=== PATIENT | female | born 1945 | race Caucasian/White ===

== ENCOUNTER 2017-03-07 09:29 | Inpatient (IN) ==
--- NOTE | 2017-03-07 10:00 | Emergency Department Note ---
Fall HPI - General Chief Complaint: Fall Stated Complaint: Fall. Right hip pain Time Seen by Provider: 03/07/17 09:56 Source: patient Mode of arrival: EMS - History of Present Illness HPI Narrative: Patient apparently fell this morning about 6 and was on the floor until discovered at 9. She has pain in the right hip and unable to bear weight. Also scraped her right elbow and has a slight skin slip but no bony injury. Denies hitting her head and denies any other pain. - Related Data Home Medications Medication Instructions Recorded Confirmed Budesonide [Pulmicort Flexhaler] 180 mcg IH QAM 09/03/15 12/03/15 Enalapril [Vasotec] 5 mg PO DAILY 09/03/15 12/03/15 Esomeprazole Magnesium [Nexium] 40 mg PO DAILY 09/03/15 12/03/15 Folic Acid 2 mg PO BID 09/03/15 12/03/15 Furosemide [Lasix] 20 - 40 mg PO DAILY 09/03/15 12/03/15 Hydrocodone/APAP 7.5/325Mg [[place] 1 tab PO Q6HP PRN 09/03/15 12/03/15 7.5/325Mg] Hydroxychloroquine Sulfate 400 mg PO HS 09/03/15 12/03/15 [Plaquenil] LORazepam [Ativan] 2 mg PO HS 09/03/15 12/03/15 Mesalamine [Asacol Hd] 800 mg PO TID 09/03/15 12/03/15 Methocarbamol [Robaxin-750] 750 mg PO Q6HP PRN 09/03/15 12/03/15 Nitroglycerin [Nitrostat] 0.4 mg SL Q5M PRN 09/03/15 12/03/15 Primidone [Mysoline] 100 mg PO BID 09/03/15 12/03/15 Promethazine [Phenergan] 25 mg PO TIDP PRN 09/03/15 12/03/15 morphine [Ms Contin] 30 mg PO Q8 09/03/15 12/03/15 predniSONE [Prednisone] 10 mg PO BID 09/03/15 12/03/15 diclofenac 1 % topical gel 2 g TOPICAL BID PRN g 10/16/15 12/03/15 docusate calcium 240 mg capsule 720 mg PO QDAY cap 10/16/15 12/03/15 epinephrine 0.3 mg/0.3 mL 0.3 mg IM ONCE each 10/16/15 12/03/15 injection, auto-injector Aspirin [Aspirin EC] 325 mg PO BID 12/03/15 12/04/15 Budesonide [Pulmicort] 90 mcg IH HS 12/03/15 12/03/15 Gabapentin 100 mg PO HS 12/03/15 12/03/15 Ipratropium/Albuterol Sulfate 1 puff INH QIDP 12/03/15 12/03/15 [Combivent] Ketamine 10% Crm 1 - 2 each TOPICAL QIDP PRN 12/03/15 12/03/15 Vitamin D3 5,000 unit PO DAILY 12/03/15 12/03/15 Allergies Allergy/AdvReac Type Severity Reaction Status Date / Time Acyclovir Analogues Allergy Unknown Unknown Verified 03/07/17 09:41 cefdinir [From OMNICEF] Allergy Unknown UNKNOWN Verified 03/07/17 09:41 cephalexin [From Keflex] Allergy Unknown Other Verified 03/07/17 09:41 clopidogrel [From Plavix] Allergy Unknown Unknown Verified 03/07/17 09:41 Formoterol [From Symbicort] Allergy Unknown Unknown Verified 03/07/17 09:41 omeprazole Allergy Unknown Unknown Verified 03/07/17 09:41 pantoprazole Allergy Unknown Unknown Verified 03/07/17 09:41 Sulfa (Sulfonamide Allergy Unknown Unknown Verified 03/07/17 09:41 Antibiotics) tiotropium Allergy Unknown Unknown Verified 03/07/17 09:41 [From Spiriva with HandiHaler] fluticasone [From Flonase] AdvReac Palpitation Verified 03/07/17 09:41 s meperidine [From Demerol] AdvReac Hallucinati Verified 03/07/17 09:41 ng bee sting Allergy Severe Anaphylaxis Uncoded 12/03/15 17:01 avalox Allergy Unknown Unknown Uncoded 12/03/15 16:57 lensaprozole Allergy Unknown Unknown Uncoded 12/03/15 17:01 Review of Systems All systems ED: reviewed and negative except as stated. Fall PMH - Past Medical History PMFSH Narrative: Medical History Rib fracture (Acute) Pneumonia (Acute) Hypokalemia (Acute) Multiple rib fractures involving four or more ribs (Acute) Tobacco use (Chronic) Eczema (Chronic) Bilateral lower extremity edema (Chronic) Chronic pain syndrome (Chronic) Barretts esophagus (Chronic) GERD (gastroesophageal reflux disease) (Chronic) Crohns disease (Chronic) Chronic fatigue (Chronic) Tremor, essential (Chronic) COPD (chronic obstructive pulmonary disease) (Chronic) Osteoporosis (Chronic) CAD (coronary artery disease) (Chronic) Hypertension, essential, benign (Chronic) Rheumatoid arthritis (Chronic) Onychomycosis of toenail (Chronic) Callus of foot (Chronic) Skin fissure (Chronic) Chronic skin ulcer (Chronic) Erythromelalgia (Chronic) PVD (peripheral vascular disease) (Chronic) Peripheral neuropathy (Chronic) Spinal stenosis (Chronic) Hammertoe (Chronic) Toe ulcer (Chronic) Acute myofascial pain (Chronic) Trigger point (Chronic) Increased urinary frequency (Chronic) Cellulitis of both lower extremities (Chronic) Past Surgical History History of ERCP (Chronic) History of ear surgery (Chronic) History of open reduction and internal fixation (ORIF) procedure (Chronic) History of surgery (Chronic) History of tonsillectomy and adenoidectomy (Chronic) Hx of angioplasty (Chronic) Hx of arthroscopy of left knee (Chronic) Hx of cataract extraction (Chronic) Hx of coronary angiogram (Chronic) Hx of fusion of cervical spine (Chronic) Hx of hand surgery (Chronic) Hx of heart surgery (Chronic) Hx of microdiscectomy (Chronic) Hx of surgical procedure (Chronic) Hx of tubal ligation (Chronic) Family History Mother Thyroid disorder Alzheimers disease Dementia Father Heart disease Hypertension Family/Other Cancer Medical history: Reports: arthritis, COPD, coronary artery disease, GERD, hypertension, osteoporosis, peripheral artery disease, other (eczema. Petersen' s esophagus. Crohn's disease. Chronic fatigue. Essential tremor. Rheumatoid arthritis. Chronic skin ulcer. Peripheral neuropathy. Spinal stenosis.) - Social History smoking status: Former smoker Physical Exam Right leg is normally aligned. Passive flexion of the leg does elicit pain in the hip area. Limitations: no limitations General appearance: alert Head: atraumatic, normocephalic Eye: Present: normal appearance ENT: normal exam Neck: Present: normal inspection Chest: Present: normal inspection Respiratory: Present: normal lung sounds bilaterally Cardiovascular: Present: regular rate, normal rhythm, normal heart sounds Abdominal: Present: soft. Absent: distention, tenderness Neurological: Present: alert Psychiatric: Present: normal affect, normal mood Skin: Present: warm, dry, intact Course Vital Signs Temperature 98.0 F 03/07/17 09:31 Pulse Rate 78 03/07/17 09:31 Respiratory Rate 20 03/07/17 09:31 Blood Pressure 191/84 03/07/17 09:31 Pulse Oximetry (%) 89 L 03/07/17 09:31 Temperature 98.0 F 03/07/17 09:31 Pulse Rate 80 03/07/17 11:18 Respiratory Rate 14 03/07/17 11:18 Blood Pressure 174/70 03/07/17 11:16 Pulse Oximetry (%) 89 L 03/07/17 11:18 Fall - MDM Narrative Medical decision making narrative: Patient has a subcapital right hip fracture nondisplaced. Patient will be admitted by the hospitalist service and Dr. Kemp will plan orthopedic pinning of his hip fracture this evening. - Lab Data Lab results reviewed: Yes I reviewed the patient's lab results. Result diagrams: 03/07/17 10:00 03/07/17 10:00 Lab Results 03/07/17 03/07/17 03/07/17 Range/Units 10:00 10:00 10:00 WBC 9.7 (4.5-11.0) K/mcL RBC 3.29 L (4.00-5.20) M/mcL Hgb 9.6 L (12.0-15.0) g/dL Hct 29.7 L (36.0-48.0) % MCV 90.4 (80.0-100.0) fL MCH 29.3 (26.0-34.0) pg MCHC 32.4 (31.0-36.0) g/dL RDW 15.6 H (11.5-14.5) % Plt Count 468 H (140-440) K/mcL MPV 7.4 (7.4-10.4) fL Gran % 66.6 (38.0-78.0) % Lymph % (Auto) 17.4 (15.5-49.0) % [place] % (Auto) 8.6 (1.0-12.0) % Eos % (Auto) 7.1 H (0.0-7.0) % Baso % (Auto) 0.3 (0.0-2.0) % Gran # 6.5 (1.8-8.0) K/mcL Lymph # (Auto) 1.7 (1.5-4.8) K/mcL [place] # (Auto) 0.8 (0.1-0.9) K/mcL Eos # (Auto) 0.7 (0.0-0.7) K/mcL Baso # (Auto) 0 (0.0-0.3) K/mcL PT 13.5 (11.9-14.5) sec INR 1.0 (0.9-1.1) Sodium 133 (133-145) mmol/L Potassium 4.7 (3.3-5.1) mmol/L Chloride 95 L (96-108) mmol/L Carbon Dioxide 23 (22-30) mmol/L Anion Gap 15.0 (8-16) BUN 15 (8-23) mg/dl Creatinine 1.3 H (0.6-1.1) mg/dl GFR Calculation 42 Glucose 106 H (70-105) mg/dL Calcium 9.4 (8.6-10.4) mg/dl Total Bilirubin < 0.2 (0.0-1.0) mg/dL AST 11 (0-37) U/l ALT 8 (0-40) U/l Alkaline Phosphatase 102 (39-117) U/L Total Protein 7.6 (5.9-8.4) gm/dL Albumin 4.0 (3.2-5.2) gm/dL Globulin 3.6 (2.2-3.7) gm/dL Albumin/Globulin Ratio 1.1 (1.0-2.3) - Radiology Data Radiology results reviewed: Yes I reviewed the patient's radiology results. Disposition Pt seen by [employer]/PA only: No Clinical Impression: Hip fracture Disposition: Xfer As Inpt ([facility]) Condition: Good Referrals: Rekha Roberto, AWILDA [Primary Care Provider] - Time of Disposition: 12:00
[2017-03-07] MEDS: HYDROmorphone 2 MG/ML SYRINGE IV PRN ×3 (10:23→13:21)
--- NOTE | 2017-03-07 10:36 | XRay Report ---
CLINICAL INFORMATION: Trauma COMPARISON: 12/06/2015 FINDINGS: The heart is mildly enlarged, but unchanged. Mediastinum and pulmonary vessels are normal. There is minor airspace disease in the right upper and left lower lung ortiz - likely scarring or atelectasis. No definite infiltrates. Malunified old left-sided rib fractures seen - as before. No acute fractures or evidence of pneumo/hemothorax. IMPRESSION: No posttraumatic change. Mild chronic bronchitis changes and minor scarring or atelectasis in the right upper and left lower lung ortiz Mild stable cardiomegaly Interpreted and Authenticated by: Jelani Oneal 03/07/17
[2017-03-07 10:38] LABS: Basophils # (Auto) 0 K/mcL (0.0-0.3); Basophils % (Auto) 0.3 % (0.0-2.0); Eosinophils # (Auto) 0.7 K/mcL (0.0-0.7); Eosinophils % (Auto) 7.1 % (0.0-7.0); Granulocytes % (Auto) 66.6 % (38.0-78.0); Lymphocytes # (Auto) 1.7 K/mcL (1.5-4.8); Lymphocytes % (Auto) 17.4 % (15.5-49.0); Mean Cell Volume 90.4 fL (80.0-100.0); Mean Corpuscular HGB Conc 32.4 g/dL (31.0-36.0); Mean Corpuscular Hemoglobin 29.3 pg (26.0-34.0); Monocytes # (Auto) 0.8 K/mcL (0.1-0.9); Monocytes % (Auto) 8.6 % (1.0-12.0); Platelet Count 468 K/mcL (140-440); RBC 3.29 M/mcL (4.00-5.20); Red Cell Distribution Width 15.6 % (11.5-14.5)
--- NOTE | 2017-03-07 10:41 | XRay Report ---
CLINICAL INFORMATION: Trauma COMPARISON: 04/30/2015 FINDINGS: ] A nondisplaced lateral subcapital fracture of the right hip is noted. Malunified old fracture of the left pubic symphysis is unchanged radiographically prior study. Both SI and hip joints are normal in width and alignment without arthritic change. Moderate L4-5 and L5-S1 degenerative disc disease again noted. Soft tissues are normal IMPRESSION: Nondisplaced subcapital fracture - right hip. Interpreted and Authenticated by: Jelani Oneal 03/07/17
[2017-03-07 11:11] LABS: ALT/SGPT 8 U/l (0-40); Albumin/Globulin Ratio 1.1 (1.0-2.3); Alkaline Phosphatase 102 U/L (39-117); Blood Urea Nitrogen 15 mg/dl (8-23)
[2017-03-07] MEDS ORDERED: morphine 30 MG TAB.SR.12H PO ONE ×2 (12:54→13:40)
[2017-03-07] MEDS ORDERED: LIDOCAINE PATCH TOPICAL ONE (13:22)
[2017-03-07] MEDS ORDERED: morphine 30 MG TAB.SR.12H PO SCH (14:00)
[2017-03-07] MEDS ORDERED: LABETALOL 5 MG/ML ML IV PRN ×2 (14:12→18:16)
--- NOTE | 2017-03-07 14:40 | Internal Med History&Physical ---
Medical - H&P: [facility] Patient information: Note initiated : 03/07/17 at 2:35 pm Service Date, if different from initiated Date: [] Patient: Awilda Weinstein a 71 y/o F admitted on for Fall, Rt Hip Pain. Chief Complaint: "I fell down" History of present illness: Ms. Weinstein is a 71 year old F with a history of rheumatoid arthritis, chronic pain on chronic opiates, coronary artery disease with a history of FL with stenting in 2001, peripheral vascular disease, osteoporosis who has been having recurrent falls over the last several months who was in her usual state of health until this morning when she got in the light off in her living room and fell down and sustained a right hip fracture. She states that her falls are all mechanical and she denies any presyncopal events. She lives alone and normally walks with a walker or cane. Her activity is limited by joint pain from her arthritis and she is not very active. She denies any chest pain or shortness of breath or other anginal symptoms. Of note, she had an FL in 2001 which she thinks presented his neck pain. She denies any symptoms with activity. She was noted to be anemic in the ER with a hemoglobin of 9.6. She states she was told she was anemic several months ago. She states it has not been worked up that she no longer has a regular primary care provider. She denies any black or bloody stools or hematuria. No evidence of blood loss. She denies any dizziness, chest pain or shortness of breath. She has a history of rheumatoid arthritis. She states she is no longer on prednisone, but thinks she takes Plaquenil. She is on chronic opiate: MS Contin 30 mg 3 times daily. She has chronic neuropathy for which she takes gabapentin. Review of systems: Positive for constipation with her last bowel movement being 2 days ago. Otherwise a comprehensive review of systems is negative or noncontributory to the chief complaint. Medical - H&P: [facility] Medical history: 1. Coronary artery disease with a history of FL requiring stenting in 2001 2. COPD, not on chronic oxygen 3. Rheumatoid arthritis 4. Peripheral vascular disease 5. Osteoporosis 6. Petersen's esophagus/GERD 7. Hypertension 8. Peripheral neuropathy 9. History of rib fracture in 2016 with hemothorax 10. Crohn's disease 11. History of bilateral lower extremity edema with recurrent cellulitis Surgical history: History of ERCP (Chronic) History of ear surgery (Chronic) History of open reduction and internal fixation (ORIF) procedure (Chronic) History of surgery (Chronic) History of tonsillectomy and adenoidectomy (Chronic) Hx of angioplasty (Chronic) Hx of arthroscopy of left knee (Chronic) Hx of cataract extraction (Chronic) Hx of coronary angiogram (Chronic) Hx of fusion of cervical spine (Chronic) Hx of hand surgery (Chronic) Hx of heart surgery (Chronic) Hx of microdiscectomy (Chronic) Hx of surgical procedure (Chronic) Hx of tubal ligation (Chronic) Pertinent family history: Mother Thyroid disorder Alzheimers disease Dementia Father Heart disease Hypertension Family/Other Cancer Social history: She lives alone in a trailer. She uses a cane or a walker to ambulate. She is a prior smoker; she quit 2.5 years ago. She denies alcohol or recreational drug use. She is a full code and designates her mother, Gisell Atkinson, as her surrogate MDM. Medical - H&P: Meds Home Medications Medication Instructions Recorded Confirmed Type Budesonide [Pulmicort Flexhaler] 180 mcg IH QAM 09/03/15 12/03/15 History Enalapril [Vasotec] 5 mg PO DAILY 09/03/15 12/03/15 History Esomeprazole Magnesium [Nexium] 40 mg PO DAILY 09/03/15 12/03/15 History Folic Acid 2 mg PO BID 09/03/15 12/03/15 History Furosemide [Lasix] 20 - 40 mg PO DAILY 09/03/15 12/03/15 History Hydrocodone/APAP 7.5/325Mg [[place] 1 tab PO Q6HP PRN 09/03/15 12/03/15 History 7.5/325Mg] Hydroxychloroquine Sulfate 400 mg PO HS 09/03/15 12/03/15 History [Plaquenil] LORazepam [Ativan] 2 mg PO HS 09/03/15 12/03/15 History Mesalamine [Asacol Hd] 800 mg PO TID 09/03/15 12/03/15 History Methocarbamol [Robaxin-750] 750 mg PO Q6HP PRN 09/03/15 12/03/15 History Nitroglycerin [Nitrostat] 0.4 mg SL Q5M PRN 09/03/15 12/03/15 History Primidone [Mysoline] 100 mg PO BID 09/03/15 12/03/15 History Promethazine [Phenergan] 25 mg PO TIDP PRN 09/03/15 12/03/15 History morphine [Ms Contin] 30 mg PO Q8 09/03/15 12/03/15 History predniSONE [Prednisone] 10 mg PO BID 09/03/15 12/03/15 History diclofenac 1 % topical gel 2 g TOPICAL BID PRN g 10/16/15 12/03/15 History docusate calcium 240 mg capsule 720 mg PO QDAY cap 10/16/15 12/03/15 History epinephrine 0.3 mg/0.3 mL 0.3 mg IM ONCE each 10/16/15 12/03/15 History injection, auto-injector Aspirin [Aspirin EC] 325 mg PO BID 12/03/15 12/04/15 History Budesonide [Pulmicort] 90 mcg IH HS 12/03/15 12/03/15 History Gabapentin 100 mg PO HS 12/03/15 12/03/15 History Ipratropium/Albuterol Sulfate 1 puff INH QIDP 12/03/15 12/03/15 History [Combivent] Ketamine 10% [place] 1 - 2 each TOPICAL QIDP PRN 12/03/15 12/03/15 History Vitamin D3 5,000 unit PO DAILY 12/03/15 12/03/15 History Allergies Allergy/AdvReac Type Severity Reaction Status Date / Time Acyclovir Analogues Allergy Unknown Unknown Verified 03/07/17 09:41 cefdinir [From OMNICEF] Allergy Unknown UNKNOWN Verified 03/07/17 09:41 cephalexin [From Keflex] Allergy Unknown Other Verified 03/07/17 09:41 clopidogrel [From Plavix] Allergy Unknown Unknown Verified 03/07/17 09:41 Formoterol [From Symbicort] Allergy Unknown Unknown Verified 03/07/17 09:41 omeprazole Allergy Unknown Unknown Verified 03/07/17 09:41 pantoprazole Allergy Unknown Unknown Verified 03/07/17 09:41 Sulfa (Sulfonamide Allergy Unknown Unknown Verified 03/07/17 09:41 Antibiotics) tiotropium Allergy Unknown Unknown Verified 03/07/17 09:41 [From Spiriva with HandiHaler] meperidine [From Demerol] AdvReac Intermediate Hallucinati Verified 03/07/17 14: 17 ng fluticasone [From Flonase] AdvReac Mild Palpitation Verified 03/07/17 14:17 s bee sting Allergy Severe Anaphylaxis Uncoded 12/03/15 17:01 avalox Allergy Unknown Unknown Uncoded 12/03/15 16:57 lensaprozole Allergy Unknown Unknown Uncoded 12/03/15 17:01 Medical - H&P: Exam - Constitutional Vitals: Temp Pulse Resp BP Pulse Ox 98.0 F 84 16 187/74 95 03/07/17 09:31 03/07/17 13:46 03/07/17 13:46 03/07/17 13:46 03/07/17 13:46 Exam: General: It is a frail, elderly woman in no acute distress. HEENT: Normocephalic atraumatic. PERRLA. EOMI. Mucous membranes are moist. Neck: Supple without adenopathy or JVD. Trachea appears midline CV: Regular rate and rhythm. No murmurs, rubs or gallops. Respiratory: Lungs are clear to auscultation bilaterally. Abdomen: Is soft, nondistended, nontender. Positive bowel tones : Sparks is in place draining clear, colorless urine Neuro: Alert and oriented 3. No focal gross motor deficits. Extremities: No clubbing or cyanosis. 2+ bilateral lower extremity edema. No deformity noted Psych: Flat affect, latent speech Skin: Warm, dry. She has a rash on her bilateral ankles and feet consisting of pink macules and patches. R elbow skin tear Medical - H&P: Reslt - Labs CBC & Chem 7: 03/07/17 10:00 03/07/17 10:00 Labs: Short CBC 03/07/17 Range/Units 10:00 WBC 9.7 (4.5-11.0) K/mcL Hgb 9.6 L (12.0-15.0) g/dL Hct 29.7 L (36.0-48.0) % Plt Count 468 H (140-440) K/mcL BMP 03/07/17 10:00 Sodium 133 Potassium 4.7 Chloride 95 L Carbon Dioxide 23 BUN 15 Creatinine 1.3 H Glucose 106 H Calcium 9.4 Liver Function 03/07/17 Range/Units 10:00 Total Bilirubin < 0.2 (0.0-1.0) mg/dL AST 11 (0-37) U/l ALT 8 (0-40) U/l Alkaline Phosphatase 102 (39-117) U/L Albumin 4.0 (3.2-5.2) gm/dL - EKG Data -: EKG Reviewed by Myself - EKG Data Prior EKG available for review: no EKG comments: Normal sinus rhythm. She has isolated ST elevation in V2. 03/07/17 14:58 - Impressions hip x-ray IMPRESSION: Nondisplaced subcapital fracture - right hip. Chest x-ray shows mild chronic bronchitis changes and minor scarring or atelectasis in the right upper and left lower lung ortiz. Mild stable cardiomegaly. Medical - H&P: A/P - Narrative A/P Narrative: #Right hip nondisplaced subcapital fracture/preop risk stratification -she is a moderate to high risk patient for surgery with her cardiac risk stratification limited by her own activity limitations. Nonetheless, no further risk stratification/intervention needs done prior to surgery -plan to go to OR with Dr. Kemp the evening for pinning of the fracture. Discussed with Dr. Chapman, anesthesiology, today. -PT/OT ordered post op #Anemia, normocytic, normochromic -Last Hgb in 2015 was 11.7-->9.3 today. Denies s/s blood loss -Check iron studies, B12, folate, TSH, haptoglobin, peripheral smear and reticulocyte count. Trend H/H -Transfuse if Hgb <7.0 or if symptomatic. She would accept blood transfusion -eosinophilia and myelocytes seen on manual diff-?heme malignancy #COPD -neither steroid nor O2 dependent -PRN nebs; monitor #Thrombocytosis -suspect reactive. Monitor #History of CAD/PVD -cont ASA post op #Chronic pain on chronic opiates with history of rheumatoid arthritis -Home regimen: MS contin 30 TID. Will continue here with lidocaine patch ( instead of home ketorolac patch) plus MSIR 15 q4HP and MS IV q2HP -Bowel meds ordered #Petersen's esophagus--cont PPI #DVT prophylaxis--enoxaparin post op #CODE STATUS--FULL. Her mother, Gisell, is her surrogate MDM.
[2017-03-07] MEDS ORDERED: MAGNESIUM HYDROXIDE 30 ML ORAL.SUSP PO PRN (15:38)
[2017-03-07] MEDS ORDERED: ONDANSETRON 4 MG/2 ML VIAL IV PRN ×3 (15:38→18:29)
[2017-03-07] MEDS ORDERED: BISACODYL 10 MG SUPP.RECT PR PRN ×2 (15:38→18:29)
[2017-03-07] MEDS ORDERED: 0.9 % SODIUM CHLORIDE 1,000 ML IV SCH (15:38)
[2017-03-07] MEDS ORDERED: ALBUTEROL SULFATE 2.5 MG/3 ML NEBULIZER NEB PRN (15:38)
[2017-03-07] MEDS ORDERED: ACETAMINOPHEN 325 MG TABLET PO PRN (15:38)
[2017-03-07] MEDS: 0.9 % SODIUM CHLORIDE 10 ML SYRINGE IV SCH ×2 (16:25→22:14)
[2017-03-07 16:35] LABS: Appearance,Urine CLEAR; Bilirubin,Urine NEG (NEG); Color,Urine STRAW; Glucose,Urine (UA) NEGATIVE (NEG); Leukocyte Esterase,Urine NEG /uL (NEG); Nitrate,Urine NEG (NEG); Protein,Urine NEG (NEG); Specific Gravity,Urine 1.008 (1.000-1.035); Urine Blood NEG mg/dL (<0.03); Urobilinogen,Urine NEG (NEG)
[2017-03-07] MEDS ORDERED: CLINDAMYCIN 600 MG in DEXTROSE 5% IN WATER 50 ML IV SCH (17:30)
--- NOTE | 2017-03-07 17:34 | Orthopedic History & Physical ---
History of Present Illness Patient information: Note initiated : 03/07/17 at 5:28 pm Service Date, if different from initiated Date: [] Patient: Awilda Weinstein 71 y/o F admitted on 03/07/17 for Fall, Rt Hip Pain. Chief Complaint: [right hip pain] Patient with a PMH significant for rheumatoid arthritis, chronic pain, CAD with MT in 2001, peripheral vascular disease suffered a ground level fall earlier today and landed on her right hip. She has pain immediately in her right hip but denies numbness or tingling in the lower extremities. She currently lives alone and ambulates with a walker. She denies dizziness, chest pain, SOB or head ache. She also denies previous history of orthopedic fracture but does admit to falling on a regular basis with no syncopal symptoms prior. She is on chronic opiate medications as well as gabapentin for neuropathy. She is a prior smoker but quit several years ago and denies alcohol or recreational drug use. HPI: Ms. Weinstein is a 71 year old F Review of Systems Constitutional: no chills, no fever(s) Medications and Allergies Home Medications Medication Instructions Recorded Confirmed Type Budesonide [Pulmicort Flexhaler] 180 mcg IH QAM 09/03/15 12/03/15 History Enalapril [Vasotec] 10 mg PO DAILY 09/03/15 03/07/17 History Esomeprazole Magnesium [Nexium] 40 mg PO DAILY 09/03/15 12/03/15 History Folic Acid 2 mg PO BID 09/03/15 12/03/15 History Furosemide [Lasix] 20 - 40 mg PO DAILY 09/03/15 12/03/15 History Hydrocodone/APAP 7.5/325Mg [[place] 1 tab PO Q6HP PRN 09/03/15 12/03/15 History 7.5/325Mg] Hydroxychloroquine Sulfate 400 mg PO HS 09/03/15 12/03/15 History [Plaquenil] LORazepam [Ativan] 2 mg PO HS 09/03/15 12/03/15 History Mesalamine [Asacol Hd] 800 mg PO TID 09/03/15 03/07/17 History Methocarbamol [Robaxin-750] 750 mg PO QIDP PRN 09/03/15 03/07/17 History Nitroglycerin [Nitrostat] 0.4 mg SL Q5M PRN 09/03/15 12/03/15 History Promethazine [Phenergan] 25 mg PO TIDP PRN 09/03/15 03/07/17 History morphine [Ms Contin] 30 mg PO TID 09/03/15 03/07/17 History predniSONE [Prednisone] 10 mg PO BID 09/03/15 12/03/15 History diclofenac 1 % topical gel 2 g TOPICAL BID PRN g 10/16/15 12/03/15 History docusate calcium 240 mg capsule 720 mg PO QDAY cap 10/16/15 12/03/15 History epinephrine 0.3 mg/0.3 mL 0.3 mg IM ONCE each 10/16/15 12/03/15 History injection, auto-injector Budesonide [Pulmicort] 90 mcg IH HS 12/03/15 12/03/15 History Gabapentin 100 mg PO HS 12/03/15 12/03/15 History Ipratropium/Albuterol Sulfate 1 puff INH QIDP 12/03/15 12/03/15 History [Combivent] Ketamine 10% Crm 1 - 2 each TOPICAL QIDP PRN 12/03/15 12/03/15 History Vitamin D3 5,000 unit PO DAILY 12/03/15 12/03/15 History Aspirin 81 mg PO DAILY 03/07/17 03/07/17 History Diclofenac Epolamine [Flector] 1 patch TD Q12 03/07/17 03/07/17 History Fluticasone Propionate [Flonase] 2 spray NS HS 03/07/17 03/07/17 History Primidone [Mysoline] 100 mg PO DAILY 03/07/17 03/07/17 History Primidone [Mysoline] 150 mg PO HS 03/07/17 03/07/17 History Allergies Allergy/AdvReac Type Severity Reaction Status Date / Time Acyclovir Analogues Allergy Unknown Unknown Verified 03/07/17 09:41 cefdinir [From OMNICEF] Allergy Unknown UNKNOWN Verified 03/07/17 09:41 cephalexin [From Keflex] Allergy Unknown Other Verified 03/07/17 09:41 clopidogrel [From Plavix] Allergy Unknown Unknown Verified 03/07/17 09:41 Formoterol [From Symbicort] Allergy Unknown Unknown Verified 03/07/17 09:41 omeprazole Allergy Unknown Unknown Verified 03/07/17 09:41 pantoprazole Allergy Unknown Unknown Verified 03/07/17 09:41 Sulfa (Sulfonamide Allergy Unknown Unknown Verified 03/07/17 09:41 Antibiotics) tiotropium Allergy Unknown Unknown Verified 03/07/17 09:41 [From Spiriva with HandiHaler] meperidine [From Demerol] AdvReac Intermediate Hallucinati Verified 03/07/17 14: 17 ng fluticasone [From Flonase] AdvReac Mild Palpitation Verified 03/07/17 14:17 s bee sting Allergy Severe Anaphylaxis Uncoded 12/03/15 17:01 avalox Allergy Unknown Unknown Uncoded 12/03/15 16:57 lensaprozole Allergy Unknown Unknown Uncoded 12/03/15 17:01 Physical Examination - Hip right Gait: other (non ambulatory) Tenderness with palpation: none, anterior, posterior, medial, lateral, greater trochanter, other Pain with motion: no pain, internal rotation and hip flexion, internal rotation and hip extension, external rotation and hip flexion, external rotation and hip extension, other Results - Labs Result Diagrams: 03/07/17 10:00 03/07/17 10:00 Labs: Abnormal lab results 03/07/17 03/07/17 Range/Units 10:00 10:00 RBC 3.29 L (4.00-5.20) M/mcL Hgb 9.6 L (12.0-15.0) g/dL Hct 29.7 L (36.0-48.0) % RDW 15.6 H (11.5-14.5) % Plt Count 468 H (140-440) K/mcL Eos % (Auto) 7.1 H (0.0-7.0) % Chloride 95 L (96-108) mmol/L Creatinine 1.3 H (0.6-1.1) mg/dl Glucose 106 H (70-105) mg/dL H & H 03/07/17 Range/Units 10:00 Hgb 9.6 L (12.0-15.0) g/dL Hct 29.7 L (36.0-48.0) % Coagulation 03/07/17 Range/Units 10:00 INR 1.0 (0.9-1.1) All other labs normal. - Diagnostic results Hip x-ray: report reviewed, image reviewed Assessment and Plan (1) Closed right hip fracture Assessment: non displaced right femoral neck fracture Plan: -Had a lengthy discussion with the patient in regards to her right hip fracture. Due to the alignment, this may be treated with pinning. We discussed the procedure at length and the patient would like to proceed with a right hip pinning with Dr. Kemp. We discussed the procedure at length as well as the possible risks and benefits associated with anesthesia including risks of blood clots, infection and nonunion. No guarantees were made. Patient understands the risks and would like to proceed with the procedure. -Admit to hospital overnight for pain control -Pain control -DVT prophylaxis -OT/PT Status: Acute Exam Vital signs: Temp Pulse Resp BP Pulse Ox 99.3 F H 79 16 188/86 92 03/07/17 15:56 03/07/17 15:03 03/07/17 15:56 03/07/17 15:56 03/07/17 15:56 Constitutional: well developed, well nourished, no acute distress Head: normocephalic, atraumatic Neck: supple Respiratory: no intercostal retractions or use of accessory muscles, clear to auscultation bilaterally Cardiovascular: regular rate & rhythm with no murmurs, rubs or gallops, no thrill or palpable murmurs, other (dorsalis pedis pulse bilaterally 2+, posterior tibialis pulse 2+) Skin: rash (scattered red lesions on bilateral lower extremities), erythema ( all toes) Neurologic: sensation intact to touch (bilateral lower extremities), other ( alert, oriented x 3) Psychiatric: oriented to person, place and time
[2017-03-07] MEDS ORDERED: MIDAZOLAM 5 MG/5 ML VIAL IV ONE (17:55)
[2017-03-07] MEDS ORDERED: fentaNYL 100 MCG/2 ML VIAL IV ONE ×2 (17:55→19:16)
[2017-03-07] MEDS ORDERED: ONDANSETRON 4 MG/2 ML VIAL IV ONE (17:55)
[2017-03-07] MEDS ORDERED: DEXAMETHASONE 10 MG/ML VIAL IV ONE (17:55)
[2017-03-07] MEDS ORDERED: PROPOFOL 200 MG/20 ML VIAL IV ONE (17:55)
[2017-03-07] MEDS ORDERED: ROPIVACAINE HCL/PF 20 ML VIAL IJ ONE (17:55)
[2017-03-07] MEDS ORDERED: PHENYLEPHRINE 10 MG/ML VIAL IV ONE (17:55)
[2017-03-07] MEDS ORDERED: LIDOCAINE HCL/PF 100 MG/5 ML SYRINGE IV ONE (17:55)
[2017-03-07] MEDS ORDERED: PROMETHAZINE 25 MG/ML VIAL IV PRN (18:16)
[2017-03-07] MEDS ORDERED: MEPERIDINE 25 MG/ML SYRINGE IV PRN (18:16)
[2017-03-07] MEDS ORDERED: ePHEDrine 50 MG/ML AMPUL IV PRN (18:16)
[2017-03-07] MEDS ORDERED: ATROPINE SULFATE 0.4 MG/ML VIAL IV PRN (18:16)
[2017-03-07] MEDS ORDERED: diphenhydrAMINE 50 MG/ML VIAL IV PRN (18:16)
[2017-03-07] MEDS ORDERED: IPRATROPIUM/ALBUTEROL 3 ML AMPUL.NEB NEB PRN (18:16)
[2017-03-07] MEDS ORDERED: NALOXONE HCL 0.4 MG/ML VIAL IV PRN ×2 (18:16→18:29)
[2017-03-07] MEDS ORDERED: FLUMAZENIL 0.1 MG/ML ML IV PRN (18:16)
[2017-03-07] MEDS ORDERED: METHOCARBAMOL 1,000 MG/10 ML VIAL IV PRN (18:16)
[2017-03-07] MEDS ORDERED: METHOCARBAMOL (PP) 750 MG TABLET (#4) PO PRN (18:21)
[2017-03-07] MEDS ORDERED: PROMETHAZINE 25 MG TABLET PO PRN (18:21)
[2017-03-07] MEDS ORDERED: BENZOCAINE/MENTHOL 1 LOZENGE PO PRN (18:29)
[2017-03-07] MEDS ORDERED: FLEETS ADULT ENEMA PR PRN (18:29)
[2017-03-07] MEDS ORDERED: POLYETHYLENE GLYCOL 3350 17 GM PACKET PO PRN (18:29)
[2017-03-07] MEDS ORDERED: ONDANSETRON ODT 4 MG TABLET SL PRN (18:29)
[2017-03-07] MEDS ORDERED: LACTATED RINGERS 1,000 ML IV SCH (18:30)
[2017-03-07 19:02] LABS: Retic Absolute 0.8 % (0.5-1.5)
[2017-03-07] MEDS: fentaNYL 100 MCG/2 ML VIAL IV PRN ×2 (19:10→19:14)
[2017-03-07 19:20] LABS: Ferritin 264.3 ng/ml (30-400); Vitamin B12 671.2 pg/ml (232-1245)
--- NOTE | 2017-03-07 19:20 | XRay Report ---
CLINICAL INFORMATION: Also O fracture right hip COMPARISON: Preoperative pelvic study from 03/07/2017 FINDINGS: Three screws transfixing subcapital fracture which has been reduced to anatomic alignment. No other change or abnormality IMPRESSION: ORIF subcapital fracture now anatomically aligned Interpreted and Authenticated by: Jelani Oneal 03/07/17
[2017-03-07] MEDS: IPRATROPIUM/ALBUTEROL 3 ML AMPUL.NEB NEB SCH (19:43)
[2017-03-07] MEDS: 0.9 % SODIUM CHLORIDE 1,000 ML IV SCH (19:51)
[2017-03-07] MEDS ORDERED: WARFARIN 5 MG TABLET PO SCH (20:00)
[2017-03-07] MEDS ORDERED: SENNOSIDES 1 TABLET PO SCH (21:00)
[2017-03-07] MEDS: SENNOSIDES 1 TABLET PO SCH (21:03)
[2017-03-07] MEDS: PRIMIDONE 50 MG TABLET PO SCH (21:03)
[2017-03-07] MEDS: FLUTICASONE PROPIONATE SPRAY.NAS NS SCH (21:04)
[2017-03-07] MEDS: DOCUSATE SODIUM 100 MG CAPSULE PO SCH (21:04)
[2017-03-07] MEDS ORDERED: CLINDAMYCIN 600 MG/4 ML VIAL ONE (21:06)
[2017-03-07] MEDS: CLINDAMYCIN 600 MG in DEXTROSE 5% IN WATER 50 ML IV SCH (22:09)
[2017-03-07] MEDS: METHOCARBAMOL 750 MG TABLET PO PRN (22:20)
[2017-03-08] MEDS: IPRATROPIUM/ALBUTEROL 3 ML AMPUL.NEB NEB SCH ×4 (01:07→19:51)
[2017-03-08] MEDS: HYDROcodone/APAP 10/325MG TABLET PO PRN ×6 (02:01→23:32)
[2017-03-08] MEDS: METHOCARBAMOL 750 MG TABLET PO PRN ×2 (05:07→22:50)
[2017-03-08] MEDS: 0.9 % SODIUM CHLORIDE 10 ML SYRINGE IV SCH ×4 (05:07→22:47)
--- NOTE | 2017-03-08 05:55 | Orthopedic Progress Note ---
Subjective Patient information: Note initiated : 03/08/17 at 5:52 am Service Date, if different from initiated Date: [] Patient: Awilda Weinstein 71 y/o F admitted on 03/07/17 for Fall, Rt Hip Pain. Chief Complaint: [POD #1 s/p right hip pinning Patient is doing well this morning s/p right hip pinning. She denies significant pain, numbness or tingling in bilateral lower extremities. She does state that she cannot feel the SCD as well as the right lower leg but she can feel it. She also reports that her sensation is improving. She has no questions or concerns at this time.] Objective Vital signs: Vital Signs Temp Pulse Pulse Resp BP BP BP 03/08/17 02:50 97.7 F 91 H 20 137/60 03/08/17 00:00 97.7 F 89 16 149/64 03/07/17 22:11 95 H 146/69 03/07/17 21:11 95 H 161/69 03/07/17 20:41 96 H 157/70 03/07/17 20:11 95 H 163/75 03/07/17 19:56 94 H 175/76 03/07/17 19:47 93 H 16 03/07/17 19:44 03/07/17 19:41 95 H 189/79 03/07/17 19:27 98.6 F 95 H 16 183/89 03/07/17 19:20 97.2 F 84 16 189/76 03/07/17 19:05 97.2 F 88 16 185/75 03/07/17 18:50 97.2 F 89 16 184/78 03/07/17 18:45 97.2 F 82 16 180/72 03/07/17 18:40 97.2 F 80 16 158/61 03/07/17 18:35 97.2 F 76 16 154/62 03/07/17 15:56 99.3 F H 16 188/86 03/07/17 15:15 03/07/17 15:03 79 17 173/69 03/07/17 14:46 79 17 173/69 03/07/17 14:31 81 13 185/79 03/07/17 14:16 79 16 198/81 03/07/17 14:01 78 17 187/83 03/07/17 13:46 84 16 187/74 03/07/17 13:35 16 03/07/17 13:31 88 19 188/82 03/07/17 13:16 21 213/81 03/07/17 13:01 17 198/68 03/07/17 12:46 77 15 185/67 03/07/17 12:31 87 19 198/76 03/07/17 12:16 81 15 187/78 03/07/17 12:09 15 158/123 03/07/17 11:46 82 16 179/76 03/07/17 11:31 85 14 171/68 03/07/17 11:18 80 14 03/07/17 11:16 79 14 174/70 03/07/17 11:01 80 13 183/73 03/07/17 10:46 16 193/70 03/07/17 10:31 73 17 184/75 03/07/17 10:16 168/96 03/07/17 10:01 19 160/79 03/07/17 09:46 20 156/73 03/07/17 09:44 17 191/84 03/07/17 09:31 98.0 F 78 20 191/84 Pulse Ox 03/08/17 02:50 96 03/08/17 00:00 97 03/07/17 22:11 97 03/07/17 21:11 96 03/07/17 20:41 96 03/07/17 20:11 96 03/07/17 19:56 97 03/07/17 19:47 03/07/17 19:44 94 03/07/17 19:41 96 03/07/17 19:27 95 03/07/17 19:20 99 03/07/17 19:05 99 03/07/17 18:50 100 03/07/17 18:45 100 03/07/17 18:40 100 03/07/17 18:35 99 03/07/17 15:56 92 03/07/17 15:15 92 03/07/17 15:03 100 03/07/17 14:46 100 03/07/17 14:31 100 03/07/17 14:16 100 03/07/17 14:01 88 L 03/07/17 13:46 95 03/07/17 13:35 03/07/17 13:31 93 03/07/17 13:16 03/07/17 13:01 03/07/17 12:46 98 03/07/17 12:31 98 03/07/17 12:16 100 03/07/17 12:09 03/07/17 11:46 100 03/07/17 11:31 88 L 03/07/17 11:18 89 L 03/07/17 11:16 87 L 03/07/17 11:01 87 L 03/07/17 10:46 03/07/17 10:31 94 03/07/17 10:16 03/07/17 10:01 03/07/17 09:46 03/07/17 09:44 03/07/17 09:31 89 L Intake and Output 03/07/17 03/07/17 03/08/17 13:59 21:59 05:59 Intake Total 1000 / 1000 375 / 375 Output Total 900 / 900 750 / 750 Balance 100 / 100 -375 / -375 Intake: Oral 375 / 375 IV - Manual Only 1000 / 1000 Output: Urine Catheter Amount 900 / 900 750 / 750 Other: Weight 100 lb 108 lb 8 oz Patient Weight 03/08/17 05:59 Weight 108 lb 8 oz Intake & Output: Intake & Output 03/07/17 03/07/17 03/08/17 13:59 21:59 05:59 Intake Total 1000 / 1000 375 / 375 Output Total 900 / 900 750 / 750 Balance 100 / 100 -375 / -375 Weight 100 lb 108 lb 8 oz Intake: Oral 375 / 375 IV - Manual Only 1000 / 1000 Output: Urine Catheter Amount 900 / 900 750 / 750 Incision: Yes clean and dry Incision clean and dry: Yes Dressing: Yes clean, Yes dry, Yes intact Weight bearing status: partial (50% with assistive device) Neurological exam IM: Yes alert, Yes oriented X3, Yes neurovascular intact ( bilateral lower extremities) Extremities exam IM: No calf tenderness, Yes normal capillary refill, No Pierce' s sign, Yes Foot pink and warm, Yes neurovascular intact - Periperhal Pulses Peripheral pulses: 2+: dorsalis pedis (L), dorsalis pedis (R), posterior tibialis (L), posterior tibialis (R) - Diagnostic Results Hip x-ray: image reviewed - Labs CBC & BMP: 03/07/17 10:00 03/07/17 10:00 Labs: Orthopedic Labs 03/08/17 03/07/17 04:45 10:00 PT Pending 13.5 INR Pending 1.0 03/08/17 03/07/17 04:45 10:00 Hgb Pending 9.6 L Hct Pending 29.7 L Assessment and Plan (1) Closed right hip fracture Assessment: POD #1 s/p right hip pinning Plan: -Pain control -Home meds per hospitalist -DVT prophylaxis with ASA 325mg BID for one month and SCD boots -PT/OT in hospital -May change dressing if fluid leaks through with 4x4 gauze and metaphor. Keep clean and dry -50% weight bearing with assistive device -d/c planning: to SNF per hospitalist in several days Status: Acute
--- NOTE | 2017-03-08 06:00 | Orthopedic Progress Note ---
Subjective Patient information: Note initiated : 03/08/17 at 5:59 am Service Date, if different from initiated Date: [] Patient: Awilda Weinstein 71 y/o F admitted on 03/07/17 for Fall, Rt Hip Pain. Chief Complaint: [] Amendment: DVT prophylaxis with Warfarin/Lovenox Objective Vital signs: Vital Signs Temp Pulse Pulse Resp BP BP BP 03/08/17 02:50 97.7 F 91 H 20 137/60 03/08/17 00:00 97.7 F 89 16 149/64 03/07/17 22:11 95 H 146/69 03/07/17 21:11 95 H 161/69 03/07/17 20:41 96 H 157/70 03/07/17 20:11 95 H 163/75 03/07/17 19:56 94 H 175/76 03/07/17 19:47 93 H 16 03/07/17 19:44 03/07/17 19:41 95 H 189/79 03/07/17 19:27 98.6 F 95 H 16 183/89 03/07/17 19:20 97.2 F 84 16 189/76 03/07/17 19:05 97.2 F 88 16 185/75 03/07/17 18:50 97.2 F 89 16 184/78 03/07/17 18:45 97.2 F 82 16 180/72 03/07/17 18:40 97.2 F 80 16 158/61 03/07/17 18:35 97.2 F 76 16 154/62 03/07/17 15:56 99.3 F H 16 188/86 03/07/17 15:15 03/07/17 15:03 79 17 173/69 03/07/17 14:46 79 17 173/69 03/07/17 14:31 81 13 185/79 03/07/17 14:16 79 16 198/81 03/07/17 14:01 78 17 187/83 03/07/17 13:46 84 16 187/74 03/07/17 13:35 16 03/07/17 13:31 88 19 188/82 03/07/17 13:16 21 213/81 03/07/17 13:01 17 198/68 03/07/17 12:46 77 15 185/67 03/07/17 12:31 87 19 198/76 03/07/17 12:16 81 15 187/78 03/07/17 12:09 15 158/123 03/07/17 11:46 82 16 179/76 03/07/17 11:31 85 14 171/68 03/07/17 11:18 80 14 03/07/17 11:16 79 14 174/70 03/07/17 11:01 80 13 183/73 03/07/17 10:46 16 193/70 03/07/17 10:31 73 17 184/75 03/07/17 10:16 168/96 03/07/17 10:01 19 160/79 03/07/17 09:46 20 156/73 03/07/17 09:44 17 191/84 03/07/17 09:31 98.0 F 78 20 191/84 Pulse Ox 03/08/17 02:50 96 03/08/17 00:00 97 03/07/17 22:11 97 03/07/17 21:11 96 03/07/17 20:41 96 03/07/17 20:11 96 03/07/17 19:56 97 03/07/17 19:47 03/07/17 19:44 94 03/07/17 19:41 96 03/07/17 19:27 95 03/07/17 19:20 99 03/07/17 19:05 99 03/07/17 18:50 100 03/07/17 18:45 100 03/07/17 18:40 100 03/07/17 18:35 99 03/07/17 15:56 92 03/07/17 15:15 92 03/07/17 15:03 100 03/07/17 14:46 100 03/07/17 14:31 100 03/07/17 14:16 100 03/07/17 14:01 88 L 03/07/17 13:46 95 03/07/17 13:35 03/07/17 13:31 93 03/07/17 13:16 03/07/17 13:01 03/07/17 12:46 98 03/07/17 12:31 98 03/07/17 12:16 100 03/07/17 12:09 03/07/17 11:46 100 03/07/17 11:31 88 L 03/07/17 11:18 89 L 03/07/17 11:16 87 L 03/07/17 11:01 87 L 03/07/17 10:46 03/07/17 10:31 94 03/07/17 10:16 03/07/17 10:01 03/07/17 09:46 03/07/17 09:44 03/07/17 09:31 89 L Intake and Output 03/07/17 03/07/17 03/08/17 13:59 21:59 05:59 Intake Total 1000 / 1000 375 / 375 Output Total 900 / 900 750 / 750 Balance 100 / 100 -375 / -375 Intake: Oral 375 / 375 IV - Manual Only 1000 / 1000 Output: Urine Catheter Amount 900 / 900 750 / 750 Other: Weight 100 lb 108 lb 8 oz Patient Weight 03/08/17 05:59 Weight 108 lb 8 oz Intake & Output: Intake & Output 03/07/17 03/07/17 03/08/17 13:59 21:59 05:59 Intake Total 1000 / 1000 375 / 375 Output Total 900 / 900 750 / 750 Balance 100 / 100 -375 / -375 Weight 100 lb 108 lb 8 oz Intake: Oral 375 / 375 IV - Manual Only 1000 / 1000 Output: Urine Catheter Amount 900 / 900 750 / 750 - Labs CBC & BMP: 03/07/17 10:00 03/07/17 10:00 Labs: Orthopedic Labs 03/08/17 03/07/17 04:45 10:00 PT Pending 13.5 INR Pending 1.0 03/08/17 03/07/17 04:45 10:00 Hgb Pending 9.6 L Hct Pending 29.7 L Assessment and Plan (1) Closed right hip fracture Assessment: POD #1 s/p right hip pinning Plan: -Pain control -Home meds per hospitalist -DVT prophylaxis with ASA 325mg BID for one month and SCD boots -PT/OT in hospital -May change dressing if fluid leaks through with 4x4 gauze and metaphor. Keep clean and dry -50% weight bearing with assistive device -d/c planning: to SNF per hospitalist in several days Status: Acute
[2017-03-08] MEDS: 0.9 % SODIUM CHLORIDE 1,000 ML IV SCH ×2 (06:01→14:36)
[2017-03-08] MEDS: Mesalamine [Asacol Hd] 800 MG PO SCH ×4 (06:47→21:12)
[2017-03-08 07:07] LABS: Mean Cell Volume 90.1 fL (80.0-100.0); Mean Corpuscular HGB Conc 32.6 g/dL (31.0-36.0); Mean Corpuscular Hemoglobin 29.3 pg (26.0-34.0); Platelet Count 342 K/mcL (140-440); RBC 2.42 M/mcL (4.00-5.20); Red Cell Distribution Width 15.3 % (11.5-14.5)
[2017-03-08 07:08] LABS: ALT/SGPT 6 U/l (0-40); Albumin 2.8 gm/dL (3.2-5.2); Alkaline Phosphatase 74 U/L (39-117); Blood Urea Nitrogen 14 mg/dl (8-23)
[2017-03-08] MEDS ORDERED: PANTOPRAZOLE 40 MG VIAL IV SCH (07:30)
[2017-03-08] MEDS: ASPIRIN 81 MG TAB.CHEW PO SCH (08:12)
[2017-03-08] MEDS: DOCUSATE SODIUM 100 MG CAPSULE PO SCH ×2 (08:12→21:11)
[2017-03-08] MEDS: PRIMIDONE 50 MG TABLET PO SCH ×2 (08:13→21:10)
[2017-03-08] MEDS: ENOXAPARIN 40 MG/0.4 ML SYRINGE SQ SCH (08:18)
--- NOTE | 2017-03-08 08:34 | Operative Note ---
DATE OF OPERATION: 03/07/2017 PREOPERATIVE DIAGNOSIS: Right hip transcervical impacted femoral neck fracture. POSTOPERATIVE DIAGNOSIS: Right hip transcervical impacted femoral neck fracture. PROCEDURE PERFORMED: Right hip percutaneous screw fixation. SURGEON: Pricilla Kemp MD VENDING MACHINE ASSEMBLER: Mita Quach PA-C ANESTHESIA: General. FINDINGS: Valgus impacted transcervical femoral neck fracture. INDICATIONS: The patient is a 71-year-old female who fell and sustained a valgus impacted femoral neck fracture, minimally displaced. We talked about the options, both hemiarthroplasty and percutaneous screw fixation, and at this point she elected to proceed with the latter. The risks and benefits were discussed with the patient in detail including, but not limited to, the risks of anesthesia, problems with the heart or lungs related to anesthesia, infection, compromise or injury to the nerves and blood vessels, deep venous thrombosis, pulmonary embolism, pneumonia, continued pain after surgery, worsening pain or symptoms after surgery, swelling, loss of motion, need for repeat surgery, hardware failure, re-tear or failure of repair site, malunion, nonunion, and hardware pain requiring future removal. OPERATION IN DETAIL: The patient was seen preoperatively where site and side were properly identified and marked, and all questions were answered. She was then transferred to the operating room and given 600 mg clindamycin and general anesthesia was administered without complication. She was placed onto the hip fracture table with all prominences well-padded. She was prepped and draped using the wall drape. Standard AP and lateral radiographs were taken, confirming the fracture was reduced well. We then made a 3 cm incision over the lateral hip and we placed three pins, one in the inferior neck in the center position just above the lesser trochanter and the two pins superior at the superior calcar, one anterior and posterior, created an inverted triangle. We measured at 80 mm. We then overdrilled and placed three 7.3 x 80 mm short-thread screws with good fixation of the bone. Radiographs confirmed that the hardware was in good position and the fracture was anatomically aligned. All of the screws were in good position with no head cutout. We then thoroughly irrigated and closed the IT band with #1 Vicryl. Subcutaneous layer was closed with 3-0 Vicryl and skin was closed with harika. She was dressed with Xeroform, 4x4s, ABD and [place] tape. She was then extubated and transferred to a stretcher, taken to the PACU in stable condition. SPECIMENS: None. COMPLICATIONS: None. DRAINS: None. DISPOSITION: To Post-Anesthetic Care Unit in stable condition. CHRISTOPHER:saima Job ID: [id number] Doc ID: [id number] Pricilla Kemp MD
[2017-03-08] MEDS: CLINDAMYCIN 600 MG in DEXTROSE 5% IN WATER 50 ML IV SCH (08:38)
[2017-03-08] MEDS ORDERED: LISINOPRIL 10 MG TABLET PO SCH (09:00)
[2017-03-08] MEDS ORDERED: ENALAPRIL 10 MG PO SCH (09:00)
[2017-03-08 09:05] LABS: Lymphocytes % 22 % (15-49); Monocytes % (Manual) 12 % (1-12); Platelet Estimate NORMAL (NORMAL); RBC Morphology NORMAL (NORMAL); Segmented Neutrophils % 65 % (38-78)
[2017-03-08] MEDS: MAGNESIUM HYDROXIDE 30 ML ORAL.SUSP PO PRN (10:02)
[2017-03-08] MEDS ORDERED: 0.9 % SODIUM CHLORIDE 250 ML IV SCH (10:30)
[2017-03-08] MEDS ORDERED: WARFARIN 4 MG TABLET PO SCH (14:00)
--- NOTE | 2017-03-08 15:24 | Internal Med Progress Note ---
Medical - PN: Subj Patient information: Note initiated : 03/08/17 at 3:18 pm Service Date, if different from initiated Date: [] Patient: Awilda Weinstein a 71 y/o F admitted on 03/07/17 for Fall, Rt Hip Pain/ Right Hip Fracture. Chief Complaint: [] Interval history: History of present illness: Ms. Weinstein is a 71 year old F with a history of rheumatoid arthritis, chronic pain on chronic opiates, coronary artery disease with a history of IL with stenting in 2001, peripheral vascular disease, osteoporosis who has been having recurrent falls over the last several months who was in her usual state of health until this morning when she got in the light off in her living room and fell down and sustained a right hip fracture. She states that her falls are all mechanical and she denies any presyncopal events. She lives alone and normally walks with a walker or cane. Her activity is limited by joint pain from her arthritis and she is not very active. She denies any chest pain or shortness of breath or other anginal symptoms. Of note, she had an IL in 2001 which she thinks presented his neck pain. She denies any symptoms with activity. She was noted to be anemic in the ER with a hemoglobin of 9.6. She states she was told she was anemic several months ago. She states it has not been worked up that she no longer has a regular primary care provider. She denies any black or bloody stools or hematuria. No evidence of blood loss. She denies any dizziness, chest pain or shortness of breath. She has a history of rheumatoid arthritis. She states she is no longer on prednisone, but thinks she takes Plaquenil. She is on chronic opiate: MS Contin 30 mg 3 times daily. She has chronic neuropathy for which she takes gabapentin. March 08: Had surgery yesterday. Hgb 7.1 today and pt feels tired; will transfuse. Her R hip pain is reasonably well controlled on hydrocodone and IV morphine. She is requesting her home Ativan at bedtime. ROS: no chest pain or SOB Gen: NAD, appears fatigued CV: RRR. 2/6 systolic ejection murmur Pulm: CTAB Abd: soft/nd/nt. Hypoactive BT Ext: no c/c/e. Well perfused. R hip bandage has a 1cm [place] of bloody drainage visible from the outside. NRO: A/O x3. No focal deficits. - Constitutional Vitals: Vital Signs Temp Pulse Resp BP Pulse Ox 97.7 F 75 18 159/65 95 03/08/17 11:56 03/08/17 13:45 03/08/17 13:45 03/08/17 11:56 03/08/17 11:56 Period Temp Pulse Resp BP Sys/Veliz Pulse Ox Last 24 Hr 97.2 F-99.3 F 70-96 16-20 137-189/60-89 92-100 Intake and Output 03/08/17 03/08/17 03/08/17 05:59 13:59 21:59 Intake Total 1429 / 1429 960 / 960 Output Total 750 / 750 880 / 880 Balance 679 / 679 80 / 80 Weight 108 lb 8 oz Patient Weight 03/09/17 05:59 Weight 108 lb 8 oz Intake & Output: Intake & Output 03/08/17 03/08/17 03/08/17 05:59 13:59 21:59 Intake Total 1429 / 1429 960 / 960 Output Total 750 / 750 880 / 880 Balance 679 / 679 80 / 80 Weight 108 lb 8 oz Intake: IV 1054 / 1054 Sodium Chloride 0.9% 1,000 ml @ 1000 / 1000 100 mls/hr IV .Q10H [facility] Rx#: [id number] Cleocin 600 mg In Dextrose 5% 54 / 54 in Water 50 ml @ 100 mls/hr IV Q8H [facility] Rx#:[id number] Oral 375 / 375 960 / 960 Output: Urine Catheter Amount 750 / 750 580 / 580 Void Amount 300 / 300 Uretheral ([place]) 300 / 300 Other: Meal Breakfast Percent of Meal Consumed 100% Feeding Ability Independent Medical - PN: Obj Da - Labs CBC & Chem 7: 03/08/17 04:45 03/08/17 04:45 Labs: Abnormal Lab Results 03/08/17 03/08/17 03/07/17 04:45 04:45 10:00 RBC 2.42 L Hgb 7.1 L Hct 21.8 L RDW 15.3 H Plt Count MPV 7.3 L Eos % (Auto) Haptoglobin Chloride Creatinine Glucose Calcium 8.3 L TIBC 222 L Total Protein 5.7 L Albumin 2.8 L 03/07/17 03/07/17 03/07/17 10:00 10:00 10:00 RBC 3.29 L Hgb 9.6 L Hct 29.7 L RDW 15.6 H Plt Count 468 H MPV Eos % (Auto) 7.1 H Haptoglobin 326 H Chloride 95 L Creatinine 1.3 H Glucose 106 H Calcium TIBC Total Protein Albumin Meds: Medications Hydrocodone Bitart/Acetaminophen ([place] 10/325mg) 0 tab PO Q4HP PRN PRN Reason: PAIN LEVEL 3-6 Last Admin: 03/08/17 13:29 Dose: 2 tab Albuterol/Ipratropium (Duoneb) 3 ml NEB Q6HRT [facility] Last Admin: 03/08/17 13:44 Dose: 3 ml Aspirin (Aspirin) 81 mg PO DAILY [facility] Last Admin: 03/08/17 08:12 Dose: 81 mg Bisacodyl (Dulcolax) 10 mg UT Q2-3DAYS PRN PRN Reason: Constipation Docusate Sodium (Colace) 100 mg PO BID [facility] Last Admin: 03/08/17 08:12 Dose: 100 mg Enoxaparin Sodium (Lovenox) 40 mg SQ DAILY [facility] Last Admin: 03/08/17 08:18 Dose: 40 mg Fluticasone Propionate (Flonase) 2 spray NS HS [facility] Last Admin: 03/07/17 21:04 Dose: Not Given Sodium Chloride (Sodium Chloride 0.9%) 1,000 mls @ 100 mls/hr IV .Q10H [facility] Last Admin: 03/08/17 14:36 Dose: Not Given Sodium Chloride (Sodium Chloride 0.9%) 250 mls @ 20 mls/hr IV .[id number] [facility] Stop: 03/08/17 22:59 Lisinopril (Zestril) 10 mg PO DAILY [facility] Last Admin: 03/08/17 08:13 Dose: 10 mg Lorazepam (Ativan) 2 mg PO HS [facility] Magnesium Hydroxide (Milk Of Magnesia) 30 ml PO BIDP PRN PRN Reason: Constipation Last Admin: 03/08/17 10:02 Dose: 30 ml Methocarbamol (Robaxin) 750 mg PO Q6HP PRN PRN Reason: Muscle Spasm Last Admin: 03/08/17 05:07 Dose: 750 mg Morphine Sulfate (Morphine) 0 mg IV Q1HP PRN PRN Reason: PAIN LEVEL > 6 Last Admin: 03/08/17 10:01 Dose: 2 mg Naloxone HCl (Narcan) 0.1 mg IV Q2MIN PRN PRN Reason: Opiate Reversal Ondansetron HCl (Zofran) 4 mg IV Q4HP PRN PRN Reason: Nausea And Vomiting Ondansetron HCl (Zofran Odt) 4 mg SL Q4HP PRN PRN Reason: Nausea And Vomiting Mesalamine [Asacol (Hd] 800 Mg) 1 dose PO TID [facility] Last Admin: 03/08/17 10:41 Dose: Not Given Polyethylene Glycol (Miralax) 17 gm PO DAILYP PRN PRN Reason: Constipation Primidone (Mysoline) 100 mg PO DAILY [facility] Last Admin: 03/08/17 08:13 Dose: 100 mg Primidone (Mysoline) 150 mg PO HS [facility] Last Admin: 03/07/17 21:03 Dose: 150 mg Promethazine HCl (Phenergan) 25 mg PO TIDP PRN PRN Reason: Nausea Senna (Senokot) 2 tab PO HS [facility] Last Admin: 03/07/17 21:03 Dose: 2 tab Sodium Biphosphate/Sodium Phosphate (Fleets Adult) 1 dose UT Q3-4DAYS PRN PRN Reason: Constipation Sodium Chloride (Saline Flush) 10 ml IV Q8 [facility] Last Admin: 03/08/17 14:36 Dose: 10 ml Throat Lozenges (Cepacol) 1 lozenge PO PRN PRN PRN Reason: Sore Throat Warfarin Sodium (Coumadin Per Pharmacy) 1 order PO DAILY@1400 [facility] Last Admin: 03/08/17 14:35 Dose: Not Given Warfarin Sodium (Coumadin) 4 mg PO DAILY@1400 [facility] Last Admin: 03/08/17 14:35 Dose: 4 mg Medical - PN: A/P - Time Spent With Patient Total time spent is greater than 50% in coordination of care (as documented) at patient's floor/unit and/or counseling patient: 25 - 35 minutes - Narrative A/P Narrative: #Right hip nondisplaced subcapital fracture -s/p pinning 03/[address] Kemp -PT/OT #Anemia, normocytic, normochromic, hypoproliferative -Last Hgb in 2016 was 11.7-->9.3 today. Denies s/s blood loss. Has been on oral iron sometime this year; pt is a difficult historian. She was previously followed at [facility] but doesn't know if an EGD or colonoscopy was planned. She is aware that she needs one. -Iron studies c/w RENEA + inflammatory block -Hgb 7.1 today. Will transfuse 2 units pRBCs and trend H/H. -Etiology: peripheral smear reassuring. No e/o hemolysis or malignancy. B12 and folate normal #COPD -neither steroid nor O2 dependent -PRN nebs; monitor #Thrombocytosis -suspect reactive. Monitor #History of CAD/PVD -cont ASA post op #Chronic pain on chronic opiates with history of rheumatoid arthritis -Home regimen: MS contin 30 TID. Will continue here with lidocaine patch ( instead of home ketorolac patch) plus hydrocodone q4HP and MS IV q2HP -Bowel meds ordered #Petersen's esophagus--cont PPI #DVT prophylaxis--enoxaparin bridging to warfarin. #CODE STATUS--FULL. Her mother, Gisell, is her surrogate MDM. #dispo: pending stability of anemia; will likely need SNF Medical - PN: Qual - Stroke Symptom Onset Unknown: No - VTE Deep Vein Thrombosis/Pulmonary Embolism Present on Admission: No
[2017-03-08] MEDS ORDERED: LISINOPRIL 10 MG TABLET PO ONE (17:40)
[2017-03-08] MEDS ORDERED: LABETALOL 5 MG/ML ML IV PRN (17:41)
[2017-03-08] MEDS: FOLIC ACID 1 MG TABLET PO SCH (21:11)
[2017-03-08] MEDS: SENNOSIDES 1 TABLET PO SCH (21:11)
[2017-03-08] MEDS: HYDROXYCHLOROQUINE 200 MG TABLET PO SCH (21:11)
[2017-03-08] MEDS: GABAPENTIN 100 MG CAPSULE PO SCH (21:11)
[2017-03-08] MEDS: LORazepam 1 MG TABLET PO SCH (21:12)
[2017-03-08] MEDS: FLUTICASONE PROPIONATE SPRAY.NAS NS SCH (21:12)
[2017-03-08] MEDS: predniSONE 10 MG TABLET PO SCH (21:15)
[2017-03-08] MEDS ORDERED: cloNIDine HCL 0.1 MG TABLET PO PRN (22:29)
[2017-03-08] MEDS: hydrALAZINE 20 MG/ML VIAL IV PRN (22:46)
[2017-03-08] MEDS ORDERED: hydrALAZINE 20 MG/ML VIAL ONE (22:49)
[2017-03-08] MEDS ORDERED: cloNIDine HCL 0.1 MG TABLET ONE (23:36)
[2017-03-09] MEDS: 0.9 % SODIUM CHLORIDE 10 ML SYRINGE IV SCH ×5 (00:33→21:24)
[2017-03-09] MEDS ORDERED: morphine 30 MG TAB.SR.12H PO ONE ×2 (00:51→01:15)
[2017-03-09] MEDS ORDERED: FUROSEMIDE 20 MG/2 ML VIAL IV ONE ×2 (00:54→01:12)
[2017-03-09] MEDS ORDERED: LABETALOL 5 MG/ML ML IV ONE (00:56)
[2017-03-09] MEDS ORDERED: LABETALOL 5 MG/ML ML IV PRN (00:57)
[2017-03-09] MEDS: IPRATROPIUM/ALBUTEROL 3 ML AMPUL.NEB NEB SCH ×4 (01:15→19:11)
[2017-03-09] MEDS: hydrALAZINE 20 MG/ML VIAL IV PRN ×2 (05:13→19:42)
[2017-03-09] MEDS ORDERED: hydrALAZINE 20 MG/ML VIAL ONE (05:18)
[2017-03-09 05:33] LABS: Mean Cell Volume 90.7 fL (80.0-100.0); Mean Corpuscular HGB Conc 33.5 g/dL (31.0-36.0); Mean Corpuscular Hemoglobin 30.4 pg (26.0-34.0); Platelet Count 347 K/mcL (140-440); RBC 3.66 M/mcL (4.00-5.20); Red Cell Distribution Width 14.8 % (11.5-14.5)
[2017-03-09 05:54] LABS: ALT/SGPT < 5 U/l (0-40); Albumin 2.9 gm/dL (3.2-5.2); Albumin/Globulin Ratio 0.9 (1.0-2.3); Alkaline Phosphatase 79 U/L (39-117); Blood Urea Nitrogen 17 mg/dl (8-23)
--- NOTE | 2017-03-09 06:05 | Orthopedic Progress Note ---
Subjective Patient information: Note initiated : 03/09/17 at 6:03 am Service Date, if different from initiated Date: [] Patient: Awilda Weinstein 71 y/o F admitted on 03/07/17 for Fall, Rt Hip Pain/ Right Hip Fracture. Chief Complaint: [POD #2 s/p right hip pinning Patient is doing well this morning. She slept well through the night and had a successful walking session yesterday. She denies significant pain in her hip as well as no numbness, tingling, weakness or calf pain in bilateral lower extremities. She denies chest pain or shortness of breath. She is feeling good after her transfusion yesterday.] Objective Vital signs: Vital Signs Temp Pulse Pulse Resp BP Pulse Ox 03/09/17 05:05 177/85 03/09/17 03:25 98.2 F 77 16 177/84 94 03/09/17 03:15 156/73 03/09/17 02:45 151/69 03/09/17 02:15 147/69 03/09/17 01:45 173/83 03/09/17 01:15 200/91 03/09/17 00:45 199/89 03/09/17 00:30 200/91 03/09/17 00:15 193/84 03/08/17 23:45 195/81 03/08/17 23:25 200/82 03/08/17 23:15 191/79 03/08/17 22:45 98.3 F 80 20 206/89 89 L 03/08/17 22:20 208/88 03/08/17 21:25 207/88 03/08/17 21:00 186/68 03/08/17 20:00 91 03/08/17 19:51 78 16 03/08/17 19:38 98.1 F 83 20 182/71 92 03/08/17 18:18 98.6 F 82 16 191/76 95 03/08/17 16:08 98.9 F 80 16 174/66 93 03/08/17 16:00 98.4 F 16 173/66 93 03/08/17 15:58 98.8 F 77 16 178/66 93 03/08/17 15:45 98.8 F 77 16 178/66 93 03/08/17 13:45 75 18 03/08/17 13:26 98.6 F 80 16 171/70 92 03/08/17 13:16 99.0 F H 81 16 173/70 93 03/08/17 11:56 97.7 F 70 16 159/65 95 03/08/17 10:49 95 03/08/17 08:00 16 95 03/08/17 07:51 97.8 F 77 16 150/60 95 03/08/17 07:37 93 H 18 94 Intake and Output 03/08/17 03/09/17 03/09/17 21:59 05:59 13:59 Intake Total 540 / 540 600 / 600 Output Total 600 / 600 2124 Balance -60 / -60 -1525 / -1525 Intake: Oral 240 / 240 600 / 600 Blood Product 300 / 300 Output: Urine Catheter Amount 600 / 600 2124 Other: Meal Dinner Percent of Meal Consumed 90% Weight 109 lb Intake & Output: Intake & Output 03/08/17 03/09/17 03/09/17 21:59 05:59 13:59 Intake Total 540 / 540 600 / 600 Output Total 600 / 600 2124 Balance -60 / -60 -1525 / -1525 Weight 109 lb Intake: Oral 240 / 240 600 / 600 Blood Product 300 / 300 Output: Urine Catheter Amount 600 / 600 2124 Other: Meal Dinner Percent of Meal Consumed 90% Incision: Yes clean and dry Incision clean and dry: Yes Dressing: Yes clean, Yes dry, Yes intact (small area of drainage apparent on outer dressing) Weight bearing status: partial (50% with assistance) Neurological exam IM: Yes alert, Yes oriented X3, Yes neurovascular intact ( bilateral lower and upper extremities) Extremities exam IM: No calf tenderness, Yes normal capillary refill, No Pierce' s sign, Yes Foot pink and warm, Yes neurovascular intact - Periperhal Pulses Peripheral pulses: 2+: dorsalis pedis (L), dorsalis pedis (R), posterior tibialis (L), posterior tibialis (R) - Allied Health Allied health notes reviewed: OT - Labs CBC & BMP: 03/09/17 04:32 03/09/17 04:32 Labs: Orthopedic Labs 03/09/17 03/08/17 03/07/17 04:32 04:45 10:00 PT Pending 14.3 13.5 INR Pending 1.1 1.0 03/09/17 03/08/17 03/07/17 04:32 04:45 10:00 Hgb 11.1 L 7.1 L 9.6 L Hct 33.2 L 21.8 L 29.7 L Assessment and Plan (1) Closed right hip fracture Assessment: POD #2 s/p right hip pinning Plan: -Pain control -Home meds per hospitalist -DVT prophylaxis: Lovenox bridging to Warfarin -PT/OT in hospital -Dressing change today with 4x4 gauze and metaphor -50% weight bearing with assistive device -d/c planning: to SNF once medically stable per hospitalist -Hgb up and stable from yesterday. Patient feeling good after transfusion. Status: Acute
--- NOTE | 2017-03-09 06:10 | Discharge Summary ---
Ortho Discharge Plan - General - Patient Instructions Diet: Regular Diet Activity: ambulate with assistive device, partial weight bearing Dressing Care: May shower in 2 days, Other (Aquacel for 7 days or until post op appointment unless soiled) Patient Education: Hip Fracture (GEN) Additional Instructions: Discharge Instructions: Resume home diet as tolerated. Follow up with [facility] in 2 weeks Do the exercises at home that physical therapy gave you. Begin range of motion tirso using a rocking chair or stationary bike. Work on gaining full extension. Use your Cryocuff or ice packs as directed, on for 20 minutes at a time throughout the day. This and elevation will help with pain and swelling. Your first physical therapy appointment with Take your prescription, photo ID, insurance cards, and current medication list with you to your first physical therapy appointment. Wear comfortable clothing for your physical therapy. Weight bearing as tolerated. If you have the Aquacel Ag dressing, leave in place for 7 days then remove. If dressing becomes soiled (turns black), remove and use gauze 4x4 dressing and silvasorb ointment and change daily. Keep incision clean and dry. If you have Dermabond (a dressing with a mesh-like appearance), leave open to air. You may start showering on post op day #2. The Dermabond dressing can get wet, do not scrub dressing. Pat dry. Pain medication can cause constipation. Take an over the counter stool softener while on pain medication. Take your prescription to shredder picker any medication or equipment (such as walker, crutches, toilet riser or C.P.M.) Your prescriptions are with your discharge information. Some medications were electronically transmitted to your pharmacy of choice. Return to ER for chills, fever, uncontrolled pain, unable to go to the bathroom , signs of infection, redness, swelling, excessive bleeding, dizziness, shortness of breath, chest pain, nausea and/or vomiting. - Problem Maintenance (1) Closed right hip fracture Status: Acute - Follow Up Plan Follow Up Appointments: Rekha Roberto ARNP [Primary Care Provider] - Disposition: Xfer SNF Prognosis: Fair Rehab Potential: Fair I certify that the patient requires SNF services: Yes (per hospitalist) Overall status at discharge: patient is progressing back to baseline - Orders For Discharge Additional Discharge Orders: Physical Therapy at Discharge - General Location: Determined By Patient
[2017-03-09] MEDS: morphine 30 MG TAB.SR.12H PO SCH ×3 (07:16→21:22)
[2017-03-09] MEDS: predniSONE 10 MG TABLET PO SCH ×2 (07:18→17:39)
[2017-03-09 07:58] LABS: Band Neutrophils % 1 % (0-10); Eosinophils % (Manual) 7 % (0-7); Lymphocytes % 17 % (15-49); Monocytes % (Manual) 6 % (1-12); Platelet Estimate NORMAL (NORMAL); RBC Morphology NORMAL (NORMAL); Segmented Neutrophils % 69 % (38-78)
[2017-03-09] MEDS: ENOXAPARIN 40 MG/0.4 ML SYRINGE SQ SCH (08:50)
[2017-03-09] MEDS: ASPIRIN 81 MG TAB.CHEW PO SCH (08:51)
[2017-03-09] MEDS: VITAMIN D3 5,000 UNIT CAPSULE PO SCH (08:52)
[2017-03-09] MEDS: LISINOPRIL 20 MG TABLET PO SCH (08:52)
[2017-03-09] MEDS: DOCUSATE SODIUM 100 MG CAPSULE PO SCH ×2 (08:52→21:22)
[2017-03-09] MEDS: FOLIC ACID 1 MG TABLET PO SCH ×2 (08:52→21:20)
[2017-03-09] MEDS: PRIMIDONE 50 MG TABLET PO SCH ×2 (08:53→21:23)
[2017-03-09] MEDS: Mesalamine [Asacol Hd] 800 MG PO SCH ×3 (08:54→21:24)
[2017-03-09] MEDS: Esomeprazole Magnesium [Nexium] 40 MG PO SCH (08:54)
[2017-03-09] MEDS ORDERED: DOCUSATE CALCIUM PO SCH (09:00)
[2017-03-09] MEDS: MAGNESIUM HYDROXIDE 30 ML ORAL.SUSP PO PRN (09:01)
[2017-03-09] MEDS: PATIENTS OWN MEDICATION 1 DOSE MISCELL INH SCH (10:19)
--- NOTE | 2017-03-09 12:22 | Internal Med Progress Note ---
Medical - PN: Subj Patient information: Note initiated : 03/09/17 at 12:22 pm Service Date, if different from initiated Date: [] Patient: Awilda Weinstein a 71 y/o F admitted on 03/07/17 for Fall, Rt Hip Pain/ Right Hip Fracture. Chief Complaint: [] Interval history: March 07: History of present illness: Ms. Weinstein is a 71 year old F with a history of rheumatoid arthritis, chronic pain on chronic opiates, coronary artery disease with a history of OK with stenting in 2001, peripheral vascular disease, osteoporosis who has been having recurrent falls over the last several months who was in her usual state of health until this morning when she got in the light off in her living room and fell down and sustained a right hip fracture. She states that her falls are all mechanical and she denies any presyncopal events. She lives alone and normally walks with a walker or cane. Her activity is limited by joint pain from her arthritis and she is not very active. She denies any chest pain or shortness of breath or other anginal symptoms. Of note, she had an OK in 2001 which she thinks presented his neck pain. She denies any symptoms with activity. She was noted to be anemic in the ER with a hemoglobin of 9.6. She states she was told she was anemic several months ago. She states it has not been worked up that she no longer has a regular primary care provider. She denies any black or bloody stools or hematuria. No evidence of blood loss. She denies any dizziness, chest pain or shortness of breath. She has a history of rheumatoid arthritis. She states she is no longer on prednisone, but thinks she takes Plaquenil. She is on chronic opiate: MS Contin 30 mg 3 times daily. She has chronic neuropathy for which she takes gabapentin. March 08: Had surgery yesterday. Hgb 7.1 today and pt feels tired; will transfuse. Her R hip pain is reasonably well controlled on hydrocodone and IV morphine. She is requesting her home Ativan at bedtime. March 09: Today, the patient says she is feeling relatively well. She denies fever chills , or significant pain. She denies chest pain or shortness of breath, abdominal pain, nausea or vomiting. She still has her Sparks catheter in place, but has been up ambulating with a walker in the halls. She does report mild constipation. She also is concerned about her right hand third and fourth fingers which have a chronic scaly rash and she wonders if someone could look at that. - Constitutional Vitals: Vital Signs Temp Pulse Resp BP Pulse Ox 97.8 F 78 16 139/75 93 03/09/17 11:43 03/09/17 11:43 03/09/17 11:43 03/09/17 11:43 03/09/17 11:43 Period Temp Pulse Resp BP Sys/Veliz Pulse Ox Last 24 Hr 97.6 F-99.0 F 72-83 16-20 137-208/66-91 89-95 Intake and Output 03/08/17 03/09/17 03/09/17 21:59 05:59 13:59 Intake Total 540 / 540 600 / 600 480 / 480 Output Total 600 / 600 2125 / 2125 750 / 750 Balance -60 / -60 -1525 / -1525 -270 / -270 Weight 109 lb Intake & Output: Intake & Output 03/08/17 03/09/17 03/09/17 21:59 05:59 13:59 Intake Total 540 / 540 600 / 600 480 / 480 Output Total 600 / 600 2125 / 2125 750 / 750 Balance -60 / -60 -1525 / -1525 -270 / -270 Weight 109 lb Intake: Oral 240 / 240 600 / 600 480 / 480 Blood Product 300 / 300 Output: Urine Catheter Amount 600 / 600 2125 / 2125 750 / 750 Other: Meal Dinner Breakfast Percent of Meal Consumed 90% 100% Feeding Ability Independent # Bowel Movements 1 On exam, she is awake and alert, calm and cooperative. No acute distress. Neck shows no obvious JVD. Cardiac exam shows regular rate and rhythm. Lungs have a few crackles at the bases, but are otherwise clear. Abdomen is soft and nontender. Extremities show no significant edema. Neurologic exam is grossly nonfocal. Medical - PN: Obj Da - Labs CBC & Chem 7: 03/09/17 04:32 03/09/17 04:32 Labs: Abnormal Lab Results 03/09/17 03/09/17 03/09/17 04:32 04:32 04:32 RBC 3.66 L Hgb 11.1 L Hct 33.2 L RDW 14.8 H Plt Count MPV 7.3 L Eos % (Auto) Haptoglobin PT 19.5 H INR 1.6 H Chloride Creatinine 1.2 H Glucose 112 H Calcium TIBC Total Protein Albumin 2.9 L Albumin/Globulin Ratio 0.9 L 03/08/17 03/08/17 03/07/17 04:45 04:45 10:00 RBC 2.42 L Hgb 7.1 L Hct 21.8 L RDW 15.3 H Plt Count MPV 7.3 L Eos % (Auto) Haptoglobin PT INR Chloride Creatinine Glucose Calcium 8.3 L TIBC 222 L Total Protein 5.7 L Albumin 2.8 L Albumin/Globulin Ratio 03/07/17 03/07/17 03/07/17 10:00 10:00 10:00 RBC 3.29 L Hgb 9.6 L Hct 29.7 L RDW 15.6 H Plt Count 468 H MPV Eos % (Auto) 7.1 H Haptoglobin 326 H PT INR Chloride 95 L Creatinine 1.3 H Glucose 106 H Calcium TIBC Total Protein Albumin Albumin/Globulin Ratio Meds: Medications Hydrocodone Bitart/Acetaminophen ([place] 10/325mg) 0 tab PO Q4HP PRN PRN Reason: PAIN LEVEL 3-6 Last Admin: 03/08/17 23:32 Dose: 2 tab Albuterol/Ipratropium (Duoneb) 3 ml NEB Q6HRT [facility] Last Admin: 03/09/17 07:12 Dose: 3 ml Aspirin (Aspirin) 81 mg PO DAILY [facility] Last Admin: 03/09/17 08:51 Dose: 81 mg Bisacodyl (Dulcolax) 10 mg WI Q2-3DAYS PRN PRN Reason: Constipation Clonidine HCl (Catapres) 0.1 mg PO TIDP PRN PRN Reason: Hypertension Last Admin: 03/08/17 23:31 Dose: 0.1 mg Docusate Sodium (Colace) 100 mg PO BID [facility] Last Admin: 03/09/17 08:52 Dose: 100 mg Enoxaparin Sodium (Lovenox) 40 mg SQ DAILY [facility] Last Admin: 03/09/17 08:50 Dose: 40 mg Fluticasone Propionate (Flonase) 2 spray NS HS [facility] Last Admin: 03/08/17 21:12 Dose: Not Given Folic Acid (Folic Acid) 2 mg PO BID [facility] Last Admin: 03/09/17 08:52 Dose: 2 mg Gabapentin (Neurontin) 100 mg PO HS [facility] Last Admin: 03/08/17 21:11 Dose: 100 mg Hydralazine HCl (Apresoline) 10 mg IV Q6HP PRN PRN Reason: Hypertension Last Admin: 03/09/17 05:13 Dose: 10 mg Hydroxychloroquine Sulfate (Plaquenil) 400 mg PO [facility] Last Admin: 03/08/17 21:11 Dose: 400 mg Labetalol HCl (Trandate) 20 mg IV Q4HP PRN PRN Reason: Blood Pressure - High Lisinopril (Zestril) 20 mg PO DAILY [facility] Last Admin: 03/09/17 08:52 Dose: 20 mg Lorazepam (Ativan) 2 mg PO [facility] Last Admin: 03/08/17 21:12 Dose: 2 mg Magnesium Hydroxide (Milk Of Magnesia) 30 ml PO BIDP PRN PRN Reason: Constipation Last Admin: 03/09/17 09:01 Dose: 30 ml Methocarbamol (Robaxin) 750 mg PO Q6HP PRN PRN Reason: Muscle Spasm Last Admin: 03/08/17 22:50 Dose: 750 mg Morphine Sulfate (Morphine) 0 mg IV Q1HP PRN PRN Reason: PAIN LEVEL > 6 Last Admin: 03/09/17 00:32 Dose: 4 mg Morphine Sulfate (Ms Contin) 30 mg PO Q8 [facility] Last Admin: 03/09/17 07:16 Dose: 30 mg Naloxone HCl (Narcan) 0.1 mg IV Q2MIN PRN PRN Reason: Opiate Reversal Ondansetron HCl (Zofran) 4 mg IV Q4HP PRN PRN Reason: Nausea And Vomiting Ondansetron HCl (Zofran Odt) 4 mg SL Q4HP PRN PRN Reason: Nausea And Vomiting Mesalamine [Asacol (Hd] 800 Mg) 1 dose PO TID [facility] Last Admin: 03/09/17 08:54 Dose: Not Given Patient Own Medication () 1 dose INH DAILY [facility] Last Admin: 03/09/17 10:19 Dose: Not Given Esomeprazole Magnesium [Nexium] 40 Mg 1 dose PO ACB [facility] Last Admin: 03/09/17 08:54 Dose: Not Given Polyethylene Glycol (Miralax) 17 gm PO DAILYP PRN PRN Reason: Constipation Prednisone (Prednisone) 10 mg PO BIDCC [facility] Last Admin: 03/09/17 07:18 Dose: 10 mg Primidone (Mysoline) 100 mg PO DAILY [facility] Last Admin: 03/09/17 08:53 Dose: 100 mg Primidone (Mysoline) 150 mg PO HS [facility] Last Admin: 03/08/17 21:10 Dose: 150 mg Promethazine HCl (Phenergan) 25 mg PO TIDP PRN PRN Reason: Nausea Senna (Senokot) 2 tab PO HS [facility] Last Admin: 03/08/17 21:11 Dose: 2 tab Sodium Biphosphate/Sodium Phosphate (Fleets Adult) 1 dose WI Q3-4DAYS PRN PRN Reason: Constipation Sodium Chloride (Saline Flush) 10 ml IV Q8 [facility] Last Admin: 03/09/17 05:13 Dose: 10 ml Throat Lozenges (Cepacol) 1 lozenge PO PRN PRN PRN Reason: Sore Throat Vitamin D (Vitamin D3) 5,000 unit PO DAILY [facility] Last Admin: 03/09/17 08:52 Dose: 5,000 unit Warfarin Sodium (Coumadin Per Pharmacy) 1 order PO DAILY@1400 [facility] Last Admin: 03/08/17 14:35 Dose: Not Given Warfarin Sodium (Coumadin) 2 mg PO ONCE@1400 ONE Stop: 03/09/17 14:01 Medical - PN: A/P - Time Spent With Patient Total time spent is greater than 50% in coordination of care (as documented) at patient's floor/unit and/or counseling patient: 25 - 35 minutes - Narrative A/P Narrative: #1. Right hip nondisplaced subcapital fracture -s/p pinning 03/[address] Kemp -PT/OT -She will likely transfer to rehab tomorrow. -GAIL Sparks #2. Anemia, normocytic, normochromic, hypoproliferative -Last Hgb in 2016 was 11.7-->9.3 today. Denies s/s blood loss. Has been on oral iron sometime this year; pt is a difficult historian. She was previously followed at [facility] but doesn't know if an EGD or colonoscopy was planned. She is aware that she needs one. -Iron studies c/w RENEA + inflammatory block. -Patient was transfused yesterday, and H&H are stable today. #3. COPD -neither steroid nor O2 dependent -PRN nebs; monitor -Doing well. #4. Thrombocytosis -suspect reactive. Resolved. #5. History of CAD/PVD -cont ASA post op and clinically she appears stable. #6. Chronic pain on chronic opiates with history of rheumatoid arthritis -Home regimen: MS contin 30 TID. Will continue here with lidocaine patch ( instead of home ketorolac patch) plus hydrocodone q4HP and MS IV q2HP -Bowel meds ordered #7. Petersen's esophagus--cont PPI #8. DVT prophylaxis--enoxaparin bridging to warfarin. -Management per pharmacy. #9. CODE STATUS--FULL. Her mother, Gisell, is her surrogate MDM. #10. Finger rash. This looks like some kind of eczema. We will try a topical steroid. I also encouraged her to follow this up with either the intermediate doctor or her primary care physician. #dispo: pending stability of anemia; will likely need SNF Medical - PN: Qual - Stroke Symptom Onset Unknown: No - VTE Deep Vein Thrombosis/Pulmonary Embolism Present on Admission: No
[2017-03-09] MEDS ORDERED: WARFARIN 2 MG TABLET PO ONE (14:00)
[2017-03-09] MEDS: METHOCARBAMOL 750 MG TABLET PO PRN (16:22)
[2017-03-09] MEDS: HYDROcodone/APAP 10/325MG TABLET PO PRN ×2 (17:37→21:21)
[2017-03-09] MEDS ORDERED: CLOBETASOL PROP 0.05% TOPICAL PRN (21:00)
[2017-03-09] MEDS: HYDROXYCHLOROQUINE 200 MG TABLET PO SCH (21:20)
[2017-03-09] MEDS: SENNOSIDES 1 TABLET PO SCH (21:21)
[2017-03-09] MEDS: GABAPENTIN 100 MG CAPSULE PO SCH (21:22)
[2017-03-09] MEDS: FLUTICASONE PROPIONATE SPRAY.NAS NS SCH (21:24)
[2017-03-09] MEDS: LORazepam 1 MG TABLET PO SCH (21:27)
[2017-03-10] MEDS: IPRATROPIUM/ALBUTEROL 3 ML AMPUL.NEB NEB SCH ×3 (03:00→13:43)
[2017-03-10] MEDS: 0.9 % SODIUM CHLORIDE 10 ML SYRINGE IV SCH ×2 (05:15→15:02)
[2017-03-10] MEDS: HYDROcodone/APAP 10/325MG TABLET PO PRN (05:16)
[2017-03-10] MEDS: morphine 30 MG TAB.SR.12H PO SCH ×2 (05:16→15:02)
[2017-03-10] MEDS: MAGNESIUM HYDROXIDE 30 ML ORAL.SUSP PO PRN (05:23)
[2017-03-10] MEDS: METHOCARBAMOL 750 MG TABLET PO PRN (06:18)
[2017-03-10 06:45] LABS: Mean Cell Volume 91.6 fL (80.0-100.0); Mean Corpuscular HGB Conc 33.1 g/dL (31.0-36.0); Mean Corpuscular Hemoglobin 30.3 pg (26.0-34.0); Platelet Count 333 K/mcL (140-440); RBC 3.66 M/mcL (4.00-5.20)
[2017-03-10 07:10] LABS: ALT/SGPT 5 U/l (0-40); Albumin 3.1 gm/dL (3.2-5.2); Alkaline Phosphatase 75 U/L (39-117); Blood Urea Nitrogen 22 mg/dl (8-23)
[2017-03-10 08:38] LABS: Eosinophils % (Manual) 3 % (0-7); Lymphocytes % 20 % (15-49); Metamyelocytes % 1 % (0-0); Monocytes % (Manual) 8 % (1-12); Platelet Estimate NORMAL (NORMAL); RBC Morphology NORMAL (NORMAL); Segmented Neutrophils % 68 % (38-78)
[2017-03-10] MEDS: FOLIC ACID 1 MG TABLET PO SCH (09:21)
[2017-03-10] MEDS: PRIMIDONE 50 MG TABLET PO SCH (09:21)
[2017-03-10] MEDS: predniSONE 10 MG TABLET PO SCH (09:22)
[2017-03-10] MEDS: DOCUSATE SODIUM 100 MG CAPSULE PO SCH (09:22)
[2017-03-10] MEDS: LISINOPRIL 20 MG TABLET PO SCH (09:22)
[2017-03-10] MEDS: ASPIRIN 81 MG TAB.CHEW PO SCH (09:22)
[2017-03-10] MEDS: VITAMIN D3 5,000 UNIT CAPSULE PO SCH (09:22)
[2017-03-10] MEDS: Mesalamine [Asacol Hd] 800 MG PO SCH ×2 (09:36→15:21)
[2017-03-10] MEDS: PATIENTS OWN MEDICATION 1 DOSE MISCELL INH SCH (09:36)
[2017-03-10] MEDS: ENOXAPARIN 40 MG/0.4 ML SYRINGE SQ SCH (09:36)
[2017-03-10] MEDS: Esomeprazole Magnesium [Nexium] 40 MG PO SCH (09:36)
[2017-03-10] MEDS ORDERED: FLU VACC QS2017-18 36MOS UP/PF 60 MCG/0.5 ML SYRINGE IM ONE (10:00)
--- NOTE | 2017-03-10 13:51 | Discharge Summary ---
Medical - DS: Prov Patient information: Note initiated : 03/10/17 at 1:42 pm Service Date, if different from initiated Date: [] Patient: Awilda Weinstein 71 y/o F admitted on 03/07/17 for Fall, Rt Hip Pain/ Right Hip Fracture. Chief Complaint: [] Date of admission: 03/07/17 15:15 Discharge date: 03/10/17 Primary care physician: Rekha Roberto Admitting clinician: Laina Coyle Consults: Dr. Jelani Kemp, orthopedics Esperanza Nance PA-C Attending physician on discharge: Amairani Hartley Medical - DS: Meds - Discharge Medications Prescriptions: HYDROcodone/APAP 10/325MG [[place] 10/325Mg] 1 - 2 tab PO Q4HP PRN #60 tab PRN Reason: Pain HYDROcodone/APAP 10/325MG [[place] 10/325Mg] 1 tab PO Q4HP PRN #30 tab PRN Reason: Pain LORazepam [Ativan] 2 mg PO HS PRN #15 tab PRN Reason: Insomnia morphine SULFATE [Ms Contin] 30 mg PO Q8H #45 tablet.er Active and Home Medications: Warfarin 2 mg every afternoon, monitor INR daily. Home Medications Budesonide [Pulmicort Flexhaler] 180 mcg IH QAM 09/03/15 [History Confirmed Last Taken Unknown] Enalapril [Vasotec] 10 mg PO DAILY 09/03/15 [History Confirmed 03/07/17 Last Taken Unknown] Esomeprazole Magnesium [Nexium] 40 mg PO DAILY 09/03/15 [History Confirmed 12/02 Last Taken Unknown] Folic Acid 2 mg PO BID 09/03/15 [History Confirmed 12/03/15 Last Taken Unknown] Furosemide [Lasix] 20 - 40 mg PO DAILY 09/03/15 [History Confirmed 12/03/15 Last Taken 11/26/15 09:00] Hydrocodone/APAP 7.5/325Mg [[place] 7.5/325Mg] 1 tab PO Q6HP PRN 09/03/15 [ History Confirmed 12/03/15 Last Taken Unknown] Hydroxychloroquine Sulfate [Plaquenil] 400 mg PO HS 09/03/15 [History Confirmed 12/03/15 Last Taken Unknown] LORazepam [Ativan] 2 mg PO HS 09/03/15 [History Confirmed 12/03/15 Last Taken Unknown] Mesalamine [Asacol Hd] 800 mg PO TID 09/03/15 [History Confirmed 03/07/17 Last Taken Unknown] Methocarbamol [Robaxin-750] 750 mg PO QIDP PRN 09/03/15 [History Confirmed 03/07 Last Taken Unknown] Nitroglycerin [Nitrostat] 0.4 mg SL Q5M PRN 09/03/15 [History Confirmed Last Taken Unknown] Promethazine [Phenergan] 25 mg PO TIDP PRN 09/03/15 [History Confirmed 03/07/17 Last Taken Unknown] morphine [Ms Contin] 30 mg PO TID 09/03/15 [History Confirmed 03/07/17 Last Taken Unknown] predniSONE [Prednisone] 10 mg PO BID 09/03/15 [History Confirmed 12/03/15 Last Taken Unknown] diclofenac 1 % topical gel 2 g TOPICAL BID PRN g 10/16/15 [History Confirmed Last Taken Unknown] docusate calcium 240 mg capsule 720 mg PO QDAY cap 10/16/15 [History Confirmed 12/03/15 Last Taken Unknown] epinephrine 0.3 mg/0.3 mL injection, auto-injector 0.3 mg IM ONCE each [History Confirmed 12/03/15 Last Taken Unknown] Budesonide [Pulmicort] 90 mcg IH HS 12/03/15 [History Confirmed 12/03/15 Last Taken Unknown] Gabapentin 100 mg PO HS 12/03/15 [History Confirmed 12/03/15 Last Taken Unknown] Ipratropium/Albuterol Sulfate [Combivent] 1 puff INH QIDP 12/03/15 [History Confirmed 12/03/15 Last Taken Unknown] Ketamine 10% Crm 1 - 2 each TOPICAL QIDP PRN 12/03/15 [History Confirmed Last Taken Unknown] Vitamin D3 5,000 unit PO DAILY 12/03/15 [History Confirmed 12/03/15 Last Taken Unknown] Aspirin 81 mg PO DAILY 03/07/17 [History Confirmed 03/07/17 Last Taken Unknown] Diclofenac Epolamine [Flector] 1 patch TD Q12 03/07/17 [History Confirmed Last Taken Unknown] Fluticasone Propionate [Flonase] 2 spray NS HS 03/07/17 [History Confirmed 03/07 Last Taken Unknown] Primidone [Mysoline] 100 mg PO DAILY 03/07/17 [History Confirmed 03/07/17 Last Taken Unknown] Primidone [Mysoline] 150 mg PO HS 03/07/17 [History Confirmed 03/07/17 Last Taken Unknown] HYDROcodone/APAP 10/325MG [[place] 10/325Mg] 1 - 2 tab PO Q4HP PRN #60 tab [Rx Last Taken Unknown] Medical - DS: Hosp Hospital course: Mr. Weinstein is a 71 year old F March 07: History of present illness: Ms. Weinstein is a 71 year old F with a history of rheumatoid arthritis, chronic pain on chronic opiates, coronary artery disease with a history of [place] with stenting in 2001, peripheral vascular disease, osteoporosis who has been having recurrent falls over the last several months who was in her usual state of health until this morning when she got in the light off in her living room and fell down and sustained a right hip fracture. She states that her falls are all mechanical and she denies any presyncopal events. She lives alone and normally walks with a walker or cane. Her activity is limited by joint pain from her arthritis and she is not very active. She denies any chest pain or shortness of breath or other anginal symptoms. Of note, she had an MN in 2001 which she thinks presented his neck pain. She denies any symptoms with activity. She was noted to be anemic in the ER with a hemoglobin of 9.6. She states she was told she was anemic several months ago. She states it has not been worked up that she no longer has a regular primary care provider. She denies any black or bloody stools or hematuria. No evidence of blood loss. She denies any dizziness, chest pain or shortness of breath. She has a history of rheumatoid arthritis. She states she is no longer on prednisone, but thinks she takes Plaquenil. She is on chronic opiate: MS Contin 30 mg 3 times daily. She has chronic neuropathy for which she takes gabapentin. March 08: Had surgery yesterday. Hgb 7.1 today and pt feels tired; will transfuse. Her R hip pain is reasonably well controlled on hydrocodone and IV morphine. She is requesting her home Ativan at bedtime. March 09: Today, the patient says she is feeling relatively well. She denies fever chills , or significant pain. She denies chest pain or shortness of breath, abdominal pain, nausea or vomiting. She still has her Sparks catheter in place, but has been up ambulating with a walker in the halls. She does report mild constipation. She also is concerned about her right hand third and fourth fingers which have a chronic scaly rash and she wonders if someone could look at that. March 10: Today, the patient feels she is doing well. She is having fairly minimal pain and is ambulating well. She is looking forward to continuing with physical therapy. Otherwise, she denies chest pain or shortness of breath, nausea or vomiting. This morning she had a high urine postvoid residual, which she blamed on constipation. She received milk of magnesia, and did have a bowel movement. Afterwards she was able to empty her bladder nearly completely. On exam, she is awake and alert, calm and cooperative. No acute distress. Neck shows no obvious JVD. Cardiac exam shows regular rate and rhythm. Lungs have a few crackles at the bases, but are otherwise clear. Abdomen is soft and nontender. Extremities show no significant edema. Neurologic exam is grossly nonfocal. A/P Narrative: #1. Right hip nondisplaced subcapital fracture -s/p pinning 03/[address] Kemp -PT/OT -She will transfer to rehab. -GAIL Sparks #2. Anemia, normocytic, normochromic, hypoproliferative -Last Hgb in 2015 was 11.7-->9.3 today. Denies s/s blood loss. Has been on oral iron sometime this year; pt is a difficult historian. She was previously followed at [facility] but doesn't know if an EGD or colonoscopy was planned. She is aware that she needs one. -Iron studies c/w RENEA + inflammatory block. -Patient was transfused and H&H are stable today. #3. COPD -neither steroid nor O2 dependent -PRN Combivent; monitor -Doing well. #4. Thrombocytosis -suspect reactive. Resolved. #5. History of CAD/PVD -cont ASA post op and clinically she appears stable. #6. Chronic pain on chronic opiates with history of rheumatoid arthritis -Home regimen: MS contin 30 TID. Will continue with lidocaine patch (instead of home ketorolac patch) plus hydrocodone q4HP . -Bowel meds ordered #7. Petersen's esophagus--cont PPI #8. DVT prophylaxis--enoxaparin bridging to warfarin. -INR is nearly in the therapeutic range. Discontinue Lovenox. INR should be checked daily at the senior living, until stable. #9. CODE STATUS--FULL. Her mother, Gisell, is her surrogate MDM. #10. Finger rash. This looks like some kind of eczema. We will try a topical steroid. I also encouraged her to follow this up with either the senior living doctor or her primary care physician. 11. . Patient did have elevated postvoid residual this morning of greater than 400 mL. However she subsequently had a bowel movement, and then was able to empty her bladder adequately. Postvoid residual should be checked 1 or 2 more times at the senior living if possible. Discharge diagnosis: Status post right hip pinning. - Time Spent with Patient Total time spent providing and/or coordinating discharge services: Greater than 30 minutes Medical - DS: Exam - Constitutional Vitals: Vital Signs Temp Pulse Pulse Resp BP Pulse Ox 03/10/17 12:00 97.5 F 20 173/77 90 03/10/17 08:00 97.2 F 71 20 90 03/10/17 07:34 75 18 90 03/10/17 03:25 98.5 F 71 20 158/68 90 03/10/17 01:44 70 154/74 03/10/17 00:00 98.6 F 89 20 176/83 94 03/09/17 21:21 99 H 161/72 03/09/17 20:00 98.2 F 81 24 H 177/80 89 L 03/09/17 19:11 79 16 88 L 03/09/17 16:00 97.8 F 144/71 93 Intake and Output 03/09/17 03/10/17 03/10/17 21:59 05:59 13:59 Intake Total 800 / 800 320 / 320 Output Total 150 / 150 1000 / 1000 Balance -150 / -150 800 / 800 -680 / -680 Intake: Oral 800 / 800 320 / 320 Output: Urine Catheter Amount 150 / 150 550 / 550 Void Amount 450 / 450 Other: Meal Dinner Breakfast Percent of Meal Consumed 50% 100% Feeding Ability Independent # Voids 1 # Bowel Movements 2 Weight 99 lb 8 oz Medical - DS: Data Labs on day of discharge: Labs from last 24 hours 03/10/17 03/10/17 03/10/17 05:00 05:00 05:00 WBC 9.4 RBC 3.66 L Hgb 11.1 L Hct 33.5 L MCV 91.6 MCH 30.3 MCHC 33.1 RDW 15.0 H Plt Count 333 MPV 7.3 L Total Counted 100 Seg Neutrophils % 68 Band Neutrophils % Not Reportable Lymphocytes % 20 Monocytes % (Manual) 8 Eosinophils % (Manual) 3 Metamyelocytes % 1 H Platelet Estimate Normal RBC Morphology Normal PT 20.2 H INR 1.7 H Sodium 133 Potassium 4.8 Chloride 95 L Carbon Dioxide 25 Anion Gap 13.0 BUN 22 Creatinine 1.2 H GFR Calculation 46 Glucose 101 Calcium 9.1 Total Bilirubin 0.2 AST 11 ALT 5 Alkaline Phosphatase 75 Total Protein 6.1 Albumin 3.1 L Globulin 3.0 Albumin/Globulin Ratio 1.0 March 07: EKG showed normal sinus rhythm at a rate of 74, with left axis deviation, left anterior fascicular block. Chest x-ray: Mild chronic bronchitis changes with scarring and atelectasis in the right upper and left lower lung ortiz. Mild stable cardiomegaly. Right hip x-ray: Nondisplaced subcapital fracture. Medical - DS: A/P - Patient/Caregiver Discharge Instructions Activity: as per physical therapy Diet: Regular Diet Additional Instructions: Discharge Instructions: Resume home diet as tolerated. Follow up with [facility] in 2 weeks Do the exercises at home that physical therapy gave you. Begin range of motion tirso using a rocking chair or stationary bike. Work on gaining full extension. Use your Cryocuff or ice packs as directed, on for 20 minutes at a time throughout the day. This and elevation will help with pain and swelling. Your first physical therapy appointment with Take your prescription, photo ID, insurance cards, and current medication list with you to your first physical therapy appointment. Wear comfortable clothing for your physical therapy. Weight bearing as tolerated. You have the Aquacel Ag dressing, leave in place for 7 days then remove. If dressing becomes soiled (turns black), remove and use gauze 4x4 dressing and silvasorb ointment and change daily. Keep incision clean and dry. You may start showering on post op day #2. Pain medication can cause constipation. Take an over the counter stool softener while on pain medication. Take your prescription to case picker any medication or equipment (such as walker, crutches, toilet riser or C.P.M.) Your prescriptions are with your discharge information. Some medications were electronically transmitted to your pharmacy of choice. Return to ER for chills, fever, uncontrolled pain, unable to go to the bathroom , signs of infection, redness, swelling, excessive bleeding, dizziness, shortness of breath, chest pain, nausea and/or vomiting. Prescriptions: HYDROcodone/APAP 10/325MG [[place] 10/325Mg] 1 - 2 tab PO Q4HP PRN #60 tab PRN Reason: Pain HYDROcodone/APAP 10/325MG [[place] 10/325Mg] 1 tab PO Q4HP PRN #30 tab PRN Reason: Pain LORazepam [Ativan] 2 mg PO HS PRN #15 tab PRN Reason: Insomnia morphine SULFATE [Ms Contin] 30 mg PO Q8H #45 tablet.er Other Amb Orders: Physical Therapy at Discharge - General Location: Determined By Patient Complete Blood Count Time Frame: 2 Days, Location: Determined By Patient Prothrombin Time INR Time Frame: 2 Days, Location: Determined By Patient - Follow up Plan Follow up with: Jelani Kemp MD [Physician] - 03/23/17 9:00 am (Please check in at 8:40 am.) Rekha Roberto, DIRECTOR OF PHOTOGRAPHY [Primary Care Provider] - Disposition: Xfer SNF Prognosis: Good Rehab Potential: Good Overall status at discharge: patient is progressing back to baseline Medical - DS: Qual - VTE Deep Vein Thrombosis/Pulmonary Embolism Present on Admission: No
[2017-03-10] MEDS ORDERED: WARFARIN 2 MG TABLET PO SCH (14:00)
== END 2017-03-10 15:25 | DRG 481 ==
LOC: ED 09:29 → MEDSUR 15:03 → SUATTDRO 15:15 → MEDSUR 15:15
PROVIDERS: ADMIT Internal Medicine; ATTEND Internal Medicine